=== PATIENT | female | born 1965 | race American Indian/Alaskan Native ===

== ENCOUNTER → 2018-08-03 11:57 | Outpatient (CLI) | payer OTHER, MEDICAID, SELFPAY ==
--- NOTE | 2018-08-03 | DI.RAD.S_ITS ---
PROCEDURE: XR FOOT LT MIN 3V INDICATIONS: left foot pain TECHNIQUE: 3 views of the foot were acquired. COMPARISON: [facility], , FOOT 3V LEFT, 07/25/2011, 12:10. FINDINGS: Bones: There is a fracture fragment medial to the talonavicular joint, new since the last exam. ? Pes planus. Bunion. There is moderate to severe first metatarsophalangeal joint degeneration, increased compared to last exam. No suspicious bony lesions. Soft tissues: No tibiotalar joint effusion. Achilles tendon appears normal. IMPRESSION: 1. A fracture fragment medial to the talonavicular joint, uncertain chronicity but new since the last exam. 2. Bunion and worsening of first metatarsophalangeal joint degeneration. 3. ? Pes planus. Dictated by: Treva Bacon M.D. on 08/03/2018 at 17:46 Approved by: Treva Bacon M.D. on 08/03/2018 at 17:51
--- NOTE | 2018-08-03 | DI.RAD.S_ITS ---
PROCEDURE: XR FOOT RT MIN 3V INDICATIONS: right foot pain TECHNIQUE: 3 views of the foot were acquired. COMPARISON: None. FINDINGS: Bones: No fractures or dislocations. Severe bunion and moderate first metatarsophalangeal joint degeneration. There is irregularity and lucency of the sesamoids and the first metatarsal head. No suspicious bony lesions. Soft tissues: No tibiotalar joint effusion. Achilles tendon appears normal. IMPRESSION: 1. Severe bunion and moderate first metatarsophalangeal joint degeneration. 2. Degenerative changes of the first metatarsal head and sesamoids, suggesting sesamoid dysfunction/degeneration. Dictated by: Treva Bacon M.D. on 08/03/2018 at 17:52 Approved by: Treva Bacon M.D. on 08/04/2018 at 9:59
== END ==
PROVIDERS: PCP Family Medicine; Visit Provider Family Medicine
DX: M79.672 Pain in left foot (principal); M79.671 Pain in right foot; M21.612 Bunion of left foot; M21.611 Bunion of right foot; M19.072 Primary osteoarthritis, left ankle and foot; M19.071 Primary osteoarthritis, right ankle and foot
CPT/HCPCS: 73630

== ENCOUNTER → 2018-10-25 14:33 | Outpatient (CLI) | payer OTHER, SELFPAY | PROVIDERS: PCP Family Medicine; Visit Provider Ophthalmology | DX: H16.9 Unspecified keratitis (principal) | CPT/HCPCS: 87070; 87077; 87186; 87205; 87252 ==

== ENCOUNTER → 2019-04-21 12:21 | Outpatient (CLI) | payer OTHER, SELFPAY ==
--- NOTE | 2019-04-21 | DI.RAD.S_ITS ---
PROCEDURE: XR KNEE LT 1TO2V INDICATIONS: Knee pain and swelling TECHNIQUE: 2 views of the knee were acquired. COMPARISON: [facility], , KNEE 3V LEFT, 07/25/2011, 12:09. FINDINGS: Bones: No fractures or dislocations. No suspicious bony lesions. Mild degenerative joint disease with periarticular osteophytes. Soft tissues: There is a moderate joint effusion. No suspicious soft tissue calcifications. IMPRESSION: 1. Mild degenerative joint disease. 2. Moderate knee joint effusion. Dictated by: Treva Bacon M.D. on 04/21/2019 at 15:09 Approved by: Treva Bacon M.D. on 04/21/2019 at 15:11
== END ==
PROVIDERS: PCP Family Medicine; Visit Provider Family Medicine
DX: M25.562 Pain in left knee (principal); M17.12 Unilateral primary osteoarthritis, left knee; M25.462 Effusion, left knee
CPT/HCPCS: 73560

== ENCOUNTER 2020-05-07 12:09 | Emergency (ER) | payer OTHER, SELFPAY ==
[2020-05-07] VITALS (14 sets, daily range): BP systolic 127–162; BP diastolic 69–86; PULSE 74–84; RESP 9–25; O2SAT 96–100; BMI 39.4
[2020-05-07 13:05] LABS: Add Manual Diff / Slide Review NO; Basophils Absolute Auto 0 /uL (0-100); Basophils Percent Auto 0.7 % (0-2); Eosinophils Absolute Auto 200 /uL (0-450); Eosinophils Percent Auto 3.4 % (2-4); Hematocrit 34.4 % (36-46); Lymphocytes Absolute Auto 1100 /uL (1100-4500); Lymphocytes Percent Auto 17.5 % (25-40); Mean Corpuscular HGB Conc 34.9 % (30-36); Mean Corpuscular Hemoglobin 29.6 PG (26-34); Mean Corpuscular Volume 84.9 fL (80-100); Monocytes Absolute Auto 600 /uL (0-900); Monocytes Percent Auto 8.9 % (3-14); Neutrophils Absolute Auto 4500 /uL (1500-7000); Neutrophils Percent Auto 69.5 % (50-75); Platelet Count 341 X10^3/uL (150-400); Red Blood Cell Count 4.05 X10^6/uL (4.0-5.2); Red Cell Distribution Width 14.3 % (11.6-14.8); White Blood Cell Count 6.5 X10^3/uL (4.5-11.0)
[2020-05-07 13:11] LABS: PTT Partial Thromboplastin Tim 31 SECONDS (26.4-36.2)
[2020-05-07 13:14] LABS: Alanine Aminotransferase 21 IU/L (<35); Albumin 4.1 g/dL (3.5-5.0); Albumin Globulin Ratio 1.1 (1.0-2.8); Alkaline Phosphatase 120 U/L (38-126); Aspartate Aminotransferase 27 IU/L (14-36); BUN Creatinine Ratio 20.5 (6-22); Bilirubin Total 0.4 mg/dL (0.2-1.3); Blood Urea Nitrogen 16 mg/dL (7-17); Calcium 9.7 mg/dL (8.4-10.2); Carbon Dioxide 30 mmol/L (22-32); Chloride 104 mmol/L (98-107); Estimated Glomerular Filt Rate > 60.0 mL/min (>60); Globulin 3.7 g/dL (1.7-4.1); Glucose 108 mg/dL (70-100); HEMOLYSIS < 15 (0-50); Lipase 67 U/L (23-300); Potassium 4.2 mmol/L (3.4-5.1); Sodium 139 mmol/L (137-145); Total Protein 7.8 g/dL (6.3-8.2)
--- NOTE | 2020-05-07 14:44 | ED_ITS ---
HPI - Abdominal Pain General Chief Complaint: Abdominal Pain Stated Complaint: Stomach Pain Time Seen by Provider: 05/07/20 14:44 Source: patient Mode of arrival: Wheelchair Limitations: no limitations History of Present Illness HPI narrative: Pleasant 54-year-old woman with a history of opioid use disorder currently on methadone and doing well presents with abdominal pain that woke her up this morning . She describes the pain as mostly in the right lower quadrant and constantly present. It is not radiating and not positional. She states her last bowel movement was yesterday. No fevers, vomiting, cough chest pain or dyspnea. She also notes pain in her left leg. Eight days ago she stumbled over a rock a nd fell on her left leg. She did not seek any care at that time she has noticed increasing swelling to the left calf the left knee has an abrasion that is healing nicely but a mild effusion is appreciated. She also has specific tenderness on the lateral malleolus and over the last 48 hours has noticed increased bruising over the lateral aspect of her foot. She has an old bruise healing over the left greater trochanter. Her primary complaint is increasing reflux and esophageal pain. She is noting that food seems to get stuck more easily. Her last primary care physician retired a number of years ago and she has not seen a new provider since. She continues to take omeprazole for reflux. Related Data Home Medications Medication Instructions Recorded Confirmed LISINOPRIL (Zestril / Prinivil) 40 mg PO DAILY #0 10/17/09 FERROUS GLUCONATE (#FERATE) 27 mg PO Q DAY #0 07/25/11 hydrochlorothiazide 25 mg PO QDAY #0 12/13/11 omeprazole 20 mg PO QDAY #0 12/13/11 BusPIRone Hydrochloride (BUSPAR 15 mg PO TID #0 05/14/13 DIVIDOSE~) hydroxyzine pamoate [Vistaril] 25 mg PO Q6HP #0 05/14/13 methocarbamol [Robaxin-750] 750 mg PO QID #1 05/14/13 tizanidine 4 mg PO Q8H #0 05/14/13 VITAMIN D (Vitamin D3) #0 04/11/17 bisacodyl [Fleet Laxative #0 04/11/17 (bisacodyl)] furosemide [Lasix] 20 #0 04/11/17 gabapentin [Neurontin] 300 TID #0 04/11/17 oxybutynin chloride [Ditropan XL] #0 04/11/17 potassium chloride [Klor-Con 8] 10 meq #0 04/11/17 sucralfate #0 04/11/17 methadone 140 mg #0 04/14/17 Previous Rx's Medication Instructions Recorded sulfamethoxazole-trimethoprim 1 tab PO BID #20 tab 04/11/17 clindamycin HCl 300 mg PO Q6H 7 Days #0 cap 04/15/17 Allergies Allergy/AdvReac Type Severity Reaction Status Date / Time From MOTRIN Allergy Unknown Uncoded 02/17/18 12:52 Review of Systems Review of Systems Narrative: Pertinent positive and negative findings as per HPI Remainder of review of systems is otherwise unremarkable for Constitutional: Fevers, chills, weakness ENT: No sore throat, neck pain, ear pain CV: Chest pain, palpitations, dyspnea on exertion Respiratory: Cough, wheeze, dyspnea : Dysuria, hematuria, flank pain MS: Muscle weakness, numbness, Neuro: Syncope, dizziness, tingling Patient History Medical History (Updated 05/07/20 @ 18:06 by Sonia Walsh MD) Acid reflux (Acute) Opioid use disorder (Acute) Social History Smoking Status: Current every day smoker Smoking Status: Current every day smoker alcohol intake frequency: 0-2 drinks per day Substance Use Type: marijuana Exam Narrative Exam Narrative: General: Healthy appearing, slightly slow and drifting to sleep (she states she just came from the methadone clinic). Able to speak in full sentences and cooperate with history taking. HEENT: Moist mucous membranes, normal sclera with reactive pupils, Neck: No JVD, supple Respiratory: Lungs are clear to auscultation, no wheezing no rales no rhonchi. Full and symmetrical air movement Cardiac: Regular rate and rhythm no murmurs no bruits Abdomen: Soft , mild tenderness in the right lower quadrant without rebound or guarding good bowel tones, no flank pain Skin: Warm and dry, no rashes Neurologic: Grossly neurologically intact with no obvious asymmetries or abnormalities Extremities: Healing hematoma over the left greater trochanter. He mild knee effusion with healing abrasion over the left knee with knee stability appreciated on exam however she is somewhat tender with lateral stress. Ankle is swollen with bruising over the lateral aspect of the foot and tenderness to the lateral malleolus on palpation. Psych: Cooperative, sleepy Initial Vital Signs Initial Vital Signs: Vital Signs Pulse Rate 83 05/07/20 12:38 Respiratory Rate 18 05/07/20 12:38 Blood Pressure 146/81 H 05/07/20 12:38 Pulse Oximetry 98 05/07/20 12:38 Course Orders Ordered: ED Orders 05/07/20 12:41 EKG-12 Lead Stat 05/07/20 12:55 Complete Blood Count AUTO DIFF Stat Comprehensive Metabolic Panel Stat Lipase Stat Partial Thromboplastin Time Stat Prothrombin Time INR Stat 05/07/20 15:15 Urine Microscopic Stat 05/07/20 15:56 US periph venous low extrem lt Stat XR abdomen 1V Stat XR ankle LT min 3V Stat Discontinued Medications Acetaminophen (Tylenol) 975 mg PO NOW ONE Stop: 05/07/20 16:54 Last Admin: 05/07/20 16:57 Dose: 975 mg Documented by: CINDY Vital Signs Vital signs: Vital Signs - 8 hr 05/07/20 12:38 05/07/20 14:52 05/07/20 15:00 Pulse Rate 83 79 79 Respiratory Rate 18 22 19 Blood Pressure 146/81 H 141/86 H 128/75 Pulse Oximetry 98 96 96 05/07/20 15:15 05/07/20 15:30 05/07/20 15:45 Pulse Rate 77 76 74 Respiratory Rate 15 13 11 L Blood Pressure 137/72 Pulse Oximetry 05/07/20 16:00 05/07/20 16:25 05/07/20 16:26 Pulse Rate 79 78 82 Respiratory Rate 20 9 L Blood Pressure 140/75 133/74 Pulse Oximetry 97 100 99 05/07/20 16:30 05/07/20 16:45 05/07/20 17:00 Pulse Rate 78 77 84 Respiratory Rate 12 19 25 H Blood Pressure 127/69 162/82 H Pulse Oximetry 98 97 96 05/07/20 17:15 05/07/20 17:30 Pulse Rate 76 76 Respiratory Rate 21 16 Blood Pressure 137/85 Pulse Oximetry 97 96 MDM - Abdominal Pain Medical Records Attestation: I reviewed the patient's medical records. Lab Data Attestation: I reviewed the patient's lab results. Result diagrams: 05/07/20 12:55 05/07/20 12:55 Labs: Lab Results 05/07/20 05/07/20 05/07/20 Range/Units 12:55 12:55 12:55 WBC 6.5 (4.5-11.0) X10^3/uL RBC 4.05 (4.0-5.2) X10^6/uL Hgb 12.0 (12.0-16.0) g/dL Hct 34.4 L (36-46) % MCV 84.9 (80-100) fL MCH 29.6 (26-34) PG MCHC 34.9 (30-36) % RDW 14.3 (11.6-14.8) % Plt Count 341 (150-400) X10^3/uL Neut % (Auto) 69.5 (50-75) % Lymph % (Auto) 17.5 L (25-40) % [place] % (Auto) 8.9 (3-14) % Eos % (Auto) 3.4 (2-4) % Baso % (Auto) 0.7 (0-2) % Neut # (Auto) 4500 (1081-3501) /uL Lymph # (Auto) 1100 (1001-9220) /uL [place] # (Auto) 600 (0-900) /uL Eos # (Auto) 200 (0-450) /uL Baso # (Auto) 0 (0-100) /uL PT 12.0 (10.1-12.7) SECONDS INR 1.0 (0.9-1.3) APTT 31 (26.4-36.2) SECONDS Sodium 139 (137-145) mmol/L Potassium 4.2 (3.4-5.1) mmol/L Chloride 104 (98-107) mmol/L Carbon Dioxide 30 (22-32) mmol/L BUN 16 (7-17) mg/dL Creatinine 0.78 (0.52-1.04) mg/dL Estimated GFR > 60.0 (>60) mL/min BUN/Creatinine Ratio 20.5 (6-22) Glucose 108 H (70-100) mg/dL Calcium 9.7 (8.4-10.2) mg/dL Total Bilirubin 0.4 (0.2-1.3) mg/dL AST 27 (14-36) IU/L ALT 21 (<35) IU/L Alkaline Phosphatase 120 (38-126) U/L Total Protein 7.8 (6.3-8.2) g/dL Albumin 4.1 (3.5-5.0) g/dL Globulin 3.7 (1.7-4.1) g/dL Albumin/Globulin Ratio 1.1 (1.0-2.8) Lipase 67 (23-300) U/L Urine RBC (0-5/HPF) Urine WBC (0-5/HPF) Ur Squamous Epith Cells (0-5/HPF) Urine Bacteria (None) Ur Culture Indicated? 05/07/20 Range/Units 15:15 WBC (4.5-11.0) X10^3/uL RBC (4.0-5.2) X10^6/uL Hgb (12.0-16.0) g/dL Hct (36-46) % MCV (80-100) fL MCH (26-34) PG MCHC (30-36) % RDW (11.6-14.8) % Plt Count (150-400) X10^3/uL Neut % (Auto) (50-75) % Lymph % (Auto) (25-40) % [place] % (Auto) (3-14) % Eos % (Auto) (2-4) % Baso % (Auto) (0-2) % Neut # (Auto) (1610-6916) /uL Lymph # (Auto) (6702-8348) /uL [place] # (Auto) (0-900) /uL Eos # (Auto) (0-450) /uL Baso # (Auto) (0-100) /uL PT (10.1-12.7) SECONDS INR (0.9-1.3) APTT (26.4-36.2) SECONDS Sodium (137-145) mmol/L Potassium (3.4-5.1) mmol/L Chloride (98-107) mmol/L Carbon Dioxide (22-32) mmol/L BUN (7-17) mg/dL Creatinine (0.52-1.04) mg/dL Estimated GFR (>60) mL/min BUN/Creatinine Ratio (6-22) Glucose (70-100) mg/dL Calcium (8.4-10.2) mg/dL Total Bilirubin (0.2-1.3) mg/dL AST (14-36) IU/L ALT (<35) IU/L Alkaline Phosphatase (38-126) U/L Total Protein (6.3-8.2) g/dL Albumin (3.5-5.0) g/dL Globulin (1.7-4.1) g/dL Albumin/Globulin Ratio (1.0-2.8) Lipase (23-300) U/L Urine RBC 1-5/hpf (0-5/HPF) Urine WBC 5-10/hpf H (0-5/HPF) Ur Squamous Epith Cells 5-10 /hpf H (0-5/HPF) Urine Bacteria None seen (None) Ur Culture Indicated? Cult not indicated Point of care testing: Point of Care Testing Test Results Negative Urine Dip Bedside Urine Glucose Negative Bedside Urine Bilirubin - Negative Bedside Urine Ketone - Negative Urine Specific [place] 1.015 Bedside Urine Occult Blood +++ Bedside Urine pH 6.5 Bedside Urine Protein +/- 15 Bedside Urine Urobilinogen - Negative Bedside Urine Nitrite - Negative Bedside Urine Leukocytes ++ 125 Esterase Imaging Data Abdominal x-ray: Radiologist's Impression: IMPRESSION: No evidence of a bowel obstruction. The amount of stool within the colon is within normal limits. Dictated by: Sidney Nunn M.D. on 05/07/2020 at 15:41 Ankle x-ray: Radiologist's Impression: IMPRESSION: Unusual appearance of the talus on the lateral view in may be related to patient positioning. The possibility of a subtle fracture cannot be excluded. CT would be helpful for better evaluation. Dictated by: Sidney Nunn M.D. on 05/07/2020 at 15:42 MDM Narrative Medical decision making narrative: Patient comes in with abdominal pain. Labs are unremarkable without evidence of white count. She has no dramatic tenderness certainly no rebound guarding or concern for a surgical abdomen. No evidence for traumatic stool loading on x-ray and no free air. Reviewed signs and symptoms of developing appendicitis with patient at this point I do not think that is the diagnosis. No evidence of ankle fracture or DVT in the left lower extremity. Suspect the swelling is from the fall with the moderate knee injury a week ago. As she is significantly sedated within a couple of hours of taking her daily methadone dose I am not convinced that she needs any additional pain medication be on Tylenol. She is safe for home discharge Discharge Plan Departure Patient Disposition: Home Clinical Impression: Abdominal pain Qualifiers: Abdominal location: right lower quadrant Qualified Code(s): R10.31 - Right lower quadrant pain Ankle pain, left Qualifiers: Chronicity: acute Qualified Code(s): M25.572 - Pain in left ankle and joints of left foot Knee pain, left Qualifiers: Chronicity: acute Qualified Code(s): M25.562 - Pain in left knee Instructions: DI for Abdominal Pain-Adult Activity Restrictions/Additional Instructions: Thank you for coming in today I am not finding any acute issues to explain your abdominal pain. I do not think that you have appendicitis however that something that always needs to be discussed. If you feel that you are getting worse you do need to be re- evaluated. Your x-ray today and her blood work were very reassuring. Regarding your left leg. You definitely injured yourself with your fall a week ago, however the knee and the ankle are both going to heal. The swelling in your calf is from the swelling from the knee and the ankle. There is no evidence of any blood clot. Regarding the increased symptoms with heartburn and feeling that food is getting stuck, you do need to follow-up with the primary care physician and likely will benefit from a consultation with a stacking machine operator at some point in the near future. I wish you the best Prescriptions: No Action LISINOPRIL (Zestril / Prinivil) 40 mg PO DAILY Qty: 0 RF: 0 FERROUS GLUCONATE (#FERATE) 27 mg PO Q DAY Qty: 0 RF: 0 omeprazole 20 MG capsule,delayed release(DR/EC) 20 mg PO QDAY Qty: 0 RF: 0 hydrochlorothiazide 25 MG tablet 25 mg PO QDAY Qty: 0 RF: 0 hydroxyzine pamoate [Vistaril] 25 MG capsule 25 mg PO Q6HP Qty: 0 RF: 0 tizanidine 4 MG tablet 4 mg PO Q8H Qty: 0 RF: 0 BusPIRone Hydrochloride (BUSPAR DIVIDOSE~) 15 mg PO TID Qty: 0 RF: 0 methocarbamol [Robaxin-750] 750 MG tablet 750 mg PO QID Qty: 1 RF: 0 sucralfate 1 GM tablet Qty: 0 RF: 0 potassium chloride [Klor-Con 8] 8 MEQ tablet extended release 10 meq Qty: 0 RF: 0 furosemide [Lasix] 20 MG tablet 20 Qty: 0 RF: 0 bisacodyl [Fleet Laxative (bisacodyl)] 5 MG tablet,delayed release (DR/EC) Qty: 0 RF: 0 oxybutynin chloride [Ditropan XL] 5 MG tablet extended release 24hr Qty: 0 RF: 0 gabapentin [Neurontin] 300 MG capsule 300 TID Qty: 0 RF: 0 VITAMIN D (Vitamin D3) Qty: 0 RF: 0 sulfamethoxazole-trimethoprim 800 MG/160 MG tablet 1 tab PO BID Qty: 20 RF: 0 methadone 5 MG tablet 140 mg Qty: 0 RF: 0 clindamycin HCl 300 MG capsule 300 mg PO Q6H 7 Days Qty: 0 RF: 0 Referrals: Marilynn Cheng MD [Primary Care Provider] -
--- NOTE | 2020-05-07 14:47 | PC.NURSE ---
patient states that this am she became nauseated and felt like she was going to vomit but that since has resolved. Now she is complaining that her RLQ is painful to touch and also her middle abdomen. She also states that she fell one week ago Thursday. It was a mechanical fall where she hit her left knee and ankle. Her ankle is purple along the lateral edge and tender to the touch. She states that she is only able to bear partial weight.
[2020-05-07 15:34] LABS: Bacteria Urine None Seen
[2020-05-07 15:41] LABS: Culture Indicated Urine Cult Not Indicated; RBC Urine 1-5/HPF (0-5/HPF); Squamous Epithelial Cell Urine 5-10 /HPF (0-5/HPF); WBC Urine 5-10/HPF (0-5/HPF)
--- NOTE | 2020-05-07 15:56 | DI.US.S_ITS ---
PROCEDURE: US PERIPH VENOUS LOW EXTREM LT INDICATIONS: UNILATERAL EDEMA TECHNIQUE: Real-time imaging, as well as color and pulse Doppler interrogation, were performed of the lower extremity deep veins from the inguinal ligament to the popliteal fossa. COMPARISON: None. FINDINGS: The common femoral, femoral and popliteal veins are normally compressible, and free of intraluminal thrombus. Color and pulse Doppler demonstrate normal phasic intraluminal flow. There is normal augmentation response to distal compression maneuver. IMPRESSION: No definitive DVT in the left lower extremity. Difficulty compressing the distal left femoral secondary to body habitus. Dictated by: Treva Bacon M.D. on 05/07/2020 at 18:10 Approved by: Treva Bacon M.D. on 05/07/2020 at 18:12
--- NOTE | 2020-05-07 15:56 | DI.RAD.S_ITS ---
PROCEDURE: XR ABDOMEN 1V INDICATIONS: abdominal pain, ? consitpation TECHNIQUE: One view of the abdomen acquired. COMPARISON: None. FINDINGS: Surgical changes and devices: None. Bowel: No air-filled distended small bowel loops are identified demonstrating air-fluid levels. A small to moderate amount of residual stool is identified within the colon. Soft tissues: No suspicious abdominal calcifications. Visualized solid organ contours appear normal in size. Bones: No suspicious bony lesions. Mild to moderate degenerative changes of the mid spine and pelvic joints are present. IMPRESSION: No evidence of a bowel obstruction. The amount of stool within the colon is within normal limits. Dictated by: Sidney Nunn M.D. on 05/07/2020 at 15:41 Approved by: Sidney Nunn M.D. on 05/07/2020 at 15:42
--- NOTE | 2020-05-07 15:56 | DI.RAD.S_ITS ---
PROCEDURE: XR ANKLE LT MIN 3V INDICATIONS: trauma TECHNIQUE: 3 views of the ankle were acquired. COMPARISON: [facility], , ANKLE 3 VIEWS LEFT, 12/15/2017, 0:25. FINDINGS: Bones: No definitive fractures or dislocations. Ankle mortise is normally aligned. No suspicious bony lesions. Slight irregularity of the tip of the medial malleolus probably is related to previous injury. A large os trigonum is incidentally noted. There are mild to moderate degenerative changes involving the mid foot and hindfoot joints that are most pronounced involving the tibiotalar joint. Also appear to be degenerative changes of the subtalar joints. There is somewhat flattened appearance of the body of the talus on the lateral view, which may be positional. Soft tissues: No tibiotalar joint effusion. Achilles tendon appears normal. IMPRESSION: Unusual appearance of the talus on the lateral view in may be related to patient positioning. The possibility of a subtle fracture cannot be excluded. CT would be helpful for better evaluation. Dictated by: Sidney Nunn M.D. on 05/07/2020 at 15:42 Approved by: Sidney Nunn M.D. on 05/07/2020 at 15:44
[2020-05-07] MEDS: ACETAMINOPHEN 325 MG TABLET 975 MG PO (16:57)
--- NOTE | 2020-05-07 17:00 | PC.NURSE ---
patient complains of pain in left leg during ultrasound. Provider notified. Patient was treated with methadone prior to coming to the ED today. Patient given 975 mg of tylenol.
== END 2020-05-07 18:29 | disposition home or self-care (01) ==
PROVIDERS: Emergency Provider Emergency Medicine; PCP Family Medicine
DX: R10.31 Right lower quadrant pain (principal); M25.572 Pain in left ankle and joints of left foot; M25.562 Pain in left knee
CPT/HCPCS: 36415; 73610; 74018; 80053; 81003; 81015; 81025; 83690; 85025; 85610; 85730; 93005; 93971; 99284

== ENCOUNTER 2020-05-09 16:25 | Emergency (ER) | payer OTHER, SELFPAY ==
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
[2020-05-09 16:36] VITALS: BP 143/68; PULSE 99; RESP 20; TEMP 37.1; O2SAT 98
[2020-05-09 17:58] VITALS: BP 144/83; PULSE 97; O2SAT 97
== END 2020-05-09 17:59 | disposition home or self-care (01) ==
PROVIDERS: Emergency Provider Emergency Medicine; PCP Family Medicine
DX: S16.1XXA Strain of muscle, fascia and tendon at neck level, initial encounter (principal); M25.512 Pain in left shoulder; R07.89 Other chest pain; V89.2XXA Person injured in unspecified motor-vehicle accident, traffic, initial encounter
CPT/HCPCS: 70450; 71046; 72125; 99283; 99284

== ENCOUNTER 2020-09-03 18:02 | Emergency (ER) | payer OTHER, SELFPAY ==
[2020-09-03 18:40] VITALS: BP 141/81; PULSE 86; RESP 16; O2SAT 98; BMI 40.6
[2020-09-03 19:27] VITALS: PULSE 85; O2SAT 100
[2020-09-03 19:30] VITALS: BP 131/81; PULSE 83; O2SAT 99
[2020-09-03 20:00] VITALS: BP 122/71; PULSE 84; O2SAT 96
--- NOTE | 2020-09-03 20:12 | ED.LOWEXIN ---
HPI - Extremity Injury (Lower) General Chief Complaint: Extremity Injury, Lower Stated Complaint: LEFT LEG SWELLING PAINFUL Time Seen by Provider: 09/03/20 19:39 Source: patient Mode of arrival: Wheelchair Limitations: no limitations History of Present Illness HPI Narrative: The patient has experienced swelling to her left leg periodically over the last year. She has had increased pain and swelling over the last week, the swelling has persisted. She complains primarily of pain in the left calf in the left popliteal fossa she has no associated chest pain or dyspnea. The leg is erythematous, she denies fever chills. She has had no trauma to the left leg. She was seen in clinic, there was concern about DVT. She has no prior history of DVT. She is on medications for chronic pain treatment. Related Data Home Medications Medication Instructions Recorded Confirmed LISINOPRIL (Zestril / Prinivil) 40 mg PO DAILY #0 10/17/09 FERROUS GLUCONATE (#FERATE) 27 mg PO Q DAY #0 07/25/11 hydrochlorothiazide 25 mg PO QDAY #0 12/13/11 omeprazole 20 mg PO QDAY #0 12/13/11 BusPIRone Hydrochloride (BUSPAR 15 mg PO TID #0 05/14/13 DIVIDOSE~) hydroxyzine pamoate [Vistaril] 25 mg PO Q6HP #0 05/14/13 methocarbamol [Robaxin-750] 750 mg PO QID #1 05/14/13 tizanidine 4 mg PO Q8H #0 05/14/13 VITAMIN D (Vitamin D3) #0 04/11/17 bisacodyl [Fleet Laxative #0 04/11/17 (bisacodyl)] furosemide [Lasix] 20 #0 04/11/17 gabapentin [Neurontin] 300 TID #0 04/11/17 oxybutynin chloride [Ditropan XL] #0 04/11/17 potassium chloride [Klor-Con 8] 10 meq #0 04/11/17 sucralfate #0 04/11/17 methadone 140 mg #0 04/14/17 Previous Rx's Medication Instructions Recorded sulfamethoxazole-trimethoprim 1 tab PO BID #20 tab 04/11/17 clindamycin HCl 300 mg PO Q6H 7 Days #0 cap 04/15/17 sulfamethoxazole-trimethoprim 1 tab PO BID 10 Days #20 tab 09/03/20 Allergies Allergy/AdvReac Type Severity Reaction Status Date / Time From MOTRIN AdvReac Unknown Heartburn Uncoded 05/09/20 16:42 Review of Systems Constitutional Constitutional: Denies chills, Denies fever(s), Denies headache(s), Denies lethargy and Denies weakness Eyes Comments: No complaints ENT Ears, Nose, Mouth, and Throat: Denies headache(s) and Denies sore throat Cardiovascular Cardiovascular: Denies chest pain and Denies dyspnea Respiratory Respiratory: Denies cough and Denies dyspnea Gastrointestinal Gastrointestinal: Denies abdominal pain Musculoskeletal Comments: Chronic back pain Integumentary/Breasts Comments: Redness and swelling to left leg. Neurologic Neurologic: Denies confusion, Denies headache(s) and Denies weakness Comments: No numbness to the lower extremities. Psychiatric Psychiatric: Denies confusion and Denies depression Patient History Medical History Acid reflux (Acute) Opioid use disorder (Acute) Social History Smoking Status: Current every day smoker Smoking Status: Current every day smoker tobacco type: cigarettes alcohol intake frequency: 0-2 drinks per day Substance Use Type: marijuana Exam Initial Vital Signs Initial Vital Signs: Vital Signs Pulse Rate 86 09/03/20 18:40 Respiratory Rate 16 09/03/20 18:40 Blood Pressure 141/81 H 09/03/20 18:40 Pulse Oximetry 98 09/03/20 18:40 Const General: cooperative and well developed Nutritional Appearance: well nourished Other: The patient is on narcotics for chronic pain. She is somnolent for the majority of the evaluation. [facility] Head: normocephalic and atraumatic Resp Effort & Inspection: normal respiratory effort and able to speak in complete sentences Auscultation: clear to auscultation bilaterally, no rales, no rhonchi and no wheezes Cardio Rate: regular rate Rhythm: regular rhythm Heart Sounds: S1 normal, S2 normal, no click, no gallops, no murmurs and no rubs Pulses: normal peripheral pulses GI Palpation: soft Percussion: abnormal to percussion Auscultation: normal bowel sounds Skin Other: Erythema to the left lower calf, extending to the mid calf. Neuro General: patient alert, patient oriented x3, gait normal and no focal motor deficits Speech: speech normal Extrem General: full ROM, no clubbing, cyanosis or edema, no pedal edema and no calf tenderness Other: Tenderness in the left popliteal fossa, decreased motion. Mild edema to left lower extremity. Negative Homans sign. Erythema to the left calf with warmth, suggesting cellulitis. Dorsalis pedis pulses normal bilaterally. Psych Speech and Movement: speech and movement normal, slowed movement and other (Somnolent) Course Course Course Narrative: The patient has cellulitis to left lower extremity. Labs are reassuring. She was given Rocephin IV, and started on Septra DS. She is advised to recheck with her doctor later this week. Orders Ordered: ED Orders 09/03/20 19:36 Complete Blood Count AUTO DIFF Stat Comprehensive Metabolic Panel Stat D Dimer Stat Lactate (Lactic Acid) Stat Partial Thromboplastin Time Stat Prothrombin Time INR Stat Discontinued Medications Ceftriaxone Sodium/Dextrose (Rocephin) 1 gm in 50 mls @ 100 mls/hr IV NOW ONE Stop: 09/03/20 21:20 Last Admin: 09/03/20 21:04 Dose: 100 mls/hr Documented by: CINDY Trimethoprim/Sulfamethoxazole (Bactrim Ds) 1 tab PO NOW ONE Stop: 09/03/20 20:51 Last Admin: 09/03/20 21:04 Dose: 1 tab Documented by: CINDY Vital Signs Vital signs: Vital Signs - 8 hr 09/03/20 18:40 09/03/20 19:27 09/03/20 19:30 Pulse Rate 86 85 83 Respiratory Rate 16 Blood Pressure 141/81 H 131/81 Pulse Oximetry 98 100 99 09/03/20 20:00 Pulse Rate 84 Respiratory Rate Blood Pressure 122/71 Pulse Oximetry 96 MDM - Extremity Injury (Lower) Lab Data Result diagrams: 09/03/20 19:36 09/03/20 19:36 Labs: Lab Results 09/03/20 09/03/20 09/03/20 Range/Units 19:36 19:36 19:36 WBC 5.4 (4.5-11.0) X10^3/uL RBC 4.08 (4.0-5.2) X10^6/uL Hgb 11.8 L (12.0-16.0) g/dL Hct 35.3 L (36-46) % MCV 86.6 (80-100) fL MCH 28.8 (26-34) PG MCHC 33.3 (30-36) % RDW 13.9 (11.6-14.8) % Plt Count 296 (150-400) X10^3/uL Neut % (Auto) 56.4 (50-75) % Lymph % (Auto) 29.5 (25-40) % [place] % (Auto) 6.9 (3-14) % Eos % (Auto) 6.4 H (2-4) % Baso % (Auto) 0.8 (0-2) % Neut # (Auto) 3100 (4891-9710) /uL Lymph # (Auto) 1600 (3399-6813) /uL [place] # (Auto) 400 (0-900) /uL Eos # (Auto) 300 (0-450) /uL Baso # (Auto) 0 (0-100) /uL PT 11.3 (10.1-12.7) SECONDS INR 1.0 (0.9-1.3) APTT 27 D (26.4-36.2) SECONDS D-Dimer 283 H (<230) ng/mL Sodium 140 (137-145) mmol/L Potassium 3.8 (3.4-5.1) mmol/L Chloride 106 (98-107) mmol/L Carbon Dioxide 31 (22-32) mmol/L BUN 21 H (7-17) mg/dL Creatinine 0.84 (0.52-1.04) mg/dL Estimated GFR > 60.0 (>60) mL/min BUN/Creatinine Ratio 25.0 H (6-22) Glucose 86 (70-100) mg/dL Lactate (0.7-2.1) mmol/L Calcium 9.1 (8.4-10.2) mg/dL Total Bilirubin 0.3 (0.2-1.3) mg/dL AST 27 (14-36) IU/L ALT 22 (<35) IU/L Alkaline Phosphatase 96 (38-126) U/L Total Protein 7.6 (6.3-8.2) g/dL Albumin 3.9 (3.5-5.0) g/dL Globulin 3.7 (1.7-4.1) g/dL Albumin/Globulin Ratio 1.1 (1.0-2.8) 09/03/20 Range/Units 19:36 WBC (4.5-11.0) X10^3/uL RBC (4.0-5.2) X10^6/uL Hgb (12.0-16.0) g/dL Hct (36-46) % MCV (80-100) fL MCH (26-34) PG MCHC (30-36) % RDW (11.6-14.8) % Plt Count (150-400) X10^3/uL Neut % (Auto) (50-75) % Lymph % (Auto) (25-40) % [place] % (Auto) (3-14) % Eos % (Auto) (2-4) % Baso % (Auto) (0-2) % Neut # (Auto) (8052-0678) /uL Lymph # (Auto) (3764-9655) /uL [place] # (Auto) (0-900) /uL Eos # (Auto) (0-450) /uL Baso # (Auto) (0-100) /uL PT (10.1-12.7) SECONDS INR (0.9-1.3) APTT (26.4-36.2) SECONDS D-Dimer (<230) ng/mL Sodium (137-145) mmol/L Potassium (3.4-5.1) mmol/L Chloride (98-107) mmol/L Carbon Dioxide (22-32) mmol/L BUN (7-17) mg/dL Creatinine (0.52-1.04) mg/dL Estimated GFR (>60) mL/min BUN/Creatinine Ratio (6-22) Glucose (70-100) mg/dL Lactate 1.8 (0.7-2.1) mmol/L Calcium (8.4-10.2) mg/dL Total Bilirubin (0.2-1.3) mg/dL AST (14-36) IU/L ALT (<35) IU/L Alkaline Phosphatase (38-126) U/L Total Protein (6.3-8.2) g/dL Albumin (3.5-5.0) g/dL Globulin (1.7-4.1) g/dL Albumin/Globulin Ratio (1.0-2.8) Discharge Plan Departure Patient Disposition: Home Clinical Impression: Left leg cellulitis Instructions: DI for Cellulitis -- Adult Prescriptions: New sulfamethoxazole-trimethoprim 800-160 mg tablet 1 tab PO BID 10 Days Qty: 20 RF: 0 No Action LISINOPRIL (Zestril / Prinivil) 40 mg PO DAILY Qty: 0 RF: 0 FERROUS GLUCONATE (#FERATE) 27 mg PO Q DAY Qty: 0 RF: 0 omeprazole 20 MG capsule,delayed release(DR/EC) 20 mg PO QDAY Qty: 0 RF: 0 hydrochlorothiazide 25 MG tablet 25 mg PO QDAY Qty: 0 RF: 0 hydroxyzine pamoate [Vistaril] 25 MG capsule 25 mg PO Q6HP Qty: 0 RF: 0 tizanidine 4 MG tablet 4 mg PO Q8H Qty: 0 RF: 0 BusPIRone Hydrochloride (BUSPAR DIVIDOSE~) 15 mg PO TID Qty: 0 RF: 0 methocarbamol [Robaxin-750] 750 MG tablet 750 mg PO QID Qty: 1 RF: 0 sucralfate 1 GM tablet Qty: 0 RF: 0 potassium chloride [Klor-Con 8] 8 MEQ tablet extended release 10 meq Qty: 0 RF: 0 furosemide [Lasix] 20 MG tablet 20 Qty: 0 RF: 0 bisacodyl [Fleet Laxative (bisacodyl)] 5 MG tablet,delayed release (DR/EC) Qty: 0 RF: 0 oxybutynin chloride [Ditropan XL] 5 MG tablet extended release 24hr Qty: 0 RF: 0 gabapentin [Neurontin] 300 MG capsule 300 TID Qty: 0 RF: 0 VITAMIN D (Vitamin D3) Qty: 0 RF: 0 sulfamethoxazole-trimethoprim 800 MG/160 MG tablet 1 tab PO BID Qty: 20 RF: 0 methadone 5 MG tablet 140 mg Qty: 0 RF: 0 clindamycin HCl 300 MG capsule 300 mg PO Q6H 7 Days Qty: 0 RF: 0 Referrals: Marilynn Cheng MD [Primary Care Provider] -
[2020-09-03 20:31] LABS: Add Manual Diff / Slide Review NO; Basophils Absolute Auto 0 /uL (0-100); Basophils Percent Auto 0.8 % (0-2); Eosinophils Absolute Auto 300 /uL (0-450); Eosinophils Percent Auto 6.4 % (2-4); Hematocrit 35.3 % (36-46); Hemoglobin 11.8 g/dL (12.0-16.0); Lymphocytes Absolute Auto 1600 /uL (1100-4500); Lymphocytes Percent Auto 29.5 % (25-40); Mean Corpuscular HGB Conc 33.3 % (30-36); Mean Corpuscular Hemoglobin 28.8 PG (26-34); Mean Corpuscular Volume 86.6 fL (80-100); Monocytes Absolute Auto 400 /uL (0-900); Monocytes Percent Auto 6.9 % (3-14); Neutrophils Absolute Auto 3100 /uL (1500-7000); Neutrophils Percent Auto 56.4 % (50-75); Platelet Count 296 X10^3/uL (150-400); Red Blood Cell Count 4.08 X10^6/uL (4.0-5.2); Red Cell Distribution Width 13.9 % (11.6-14.8); White Blood Cell Count 5.4 X10^3/uL (4.5-11.0)
[2020-09-03 20:33] LABS: Prothrombin Time 11.3 SECONDS (10.1-12.7)
[2020-09-03 20:34] LABS: Alanine Aminotransferase 22 IU/L (<35); Albumin 3.9 g/dL (3.5-5.0); Albumin Globulin Ratio 1.1 (1.0-2.8); Alkaline Phosphatase 96 U/L (38-126); Aspartate Aminotransferase 27 IU/L (14-36); Bilirubin Total 0.3 mg/dL (0.2-1.3); Blood Urea Nitrogen 21 mg/dL (7-17); Calcium 9.1 mg/dL (8.4-10.2); Carbon Dioxide 31 mmol/L (22-32); Chloride 106 mmol/L (98-107); Estimated Glomerular Filt Rate > 60.0 mL/min (>60); Globulin 3.7 g/dL (1.7-4.1); Glucose 86 mg/dL (70-100); HEMOLYSIS 19 (0-50); Potassium 3.8 mmol/L (3.4-5.1); Sodium 140 mmol/L (137-145); Total Protein 7.6 g/dL (6.3-8.2)
[2020-09-03 20:36] LABS: D Dimer 283 ng/mL (<230); PTT Partial Thromboplastin Tim 27 SECONDS (26.4-36.2)
[2020-09-03 20:41] LABS: Lactate (Lactic Acid) 1.8 mmol/L (0.7-2.1)
[2020-09-03] MEDS: TRIMETH/SULFA 160/800 (DS) TABLET 1 TAB PO (21:04)
[2020-09-03] MEDS: CEFTRIAXONE 1 GM/50 ML FROZ.PIGGY IV (21:04)
[2020-09-03 21:41] VITALS: BP 126/74; PULSE 80; RESP 16; O2SAT 99
== END 2020-09-03 21:41 | disposition home or self-care (01) ==
PROVIDERS: Emergency Provider Emergency Medicine; PCP Family Medicine
DX: L03.116 Cellulitis of left lower limb (principal)
CPT/HCPCS: 80053; 83605; 85025; 85379; 85610; 85730; 96365; 99284

== ENCOUNTER → 2021-04-01 14:23 | Outpatient (ROUT) | payer OTHER, SELFPAY ==
[2021-04-01 14:31] LABS: Add Manual Diff / Slide Review NO; Basophils Absolute Auto 100 /uL (0-100); Basophils Percent Auto 0.9 % (0-2); Eosinophils Absolute Auto 400 /uL (0-450); Eosinophils Percent Auto 7.8 % (2-4); Hematocrit 34.7 % (36-46); Hemoglobin 11.5 g/dL (12.0-16.0); Lymphocytes Absolute Auto 1600 /uL (1100-4500); Lymphocytes Percent Auto 30.2 % (25-40); Mean Corpuscular HGB Conc 33.2 % (30-36); Mean Corpuscular Hemoglobin 27.7 PG (26-34); Mean Corpuscular Volume 83.5 fL (80-100); Monocytes Absolute Auto 400 /uL (0-900); Monocytes Percent Auto 7.2 % (3-14); Neutrophils Absolute Auto 2900 /uL (1500-7000); Neutrophils Percent Auto 53.9 % (50-75); Platelet Count 340 X10^3/uL (150-400); Red Blood Cell Count 4.16 X10^6/uL (4.0-5.2); Red Cell Distribution Width 14.7 % (11.6-14.8); White Blood Cell Count 5.4 X10^3/uL (4.5-11.0)
[2021-04-01 14:38] LABS: Prothrombin Time 12.8 SECONDS (10.1-12.7)
[2021-04-01 14:39] LABS: INR 1.1 (0.9-1.3)
[2021-04-01 14:45] LABS: PTT Partial Thromboplastin Tim 36 SECONDS (26.4-36.2)
[2021-04-01 15:00] LABS: Alanine Aminotransferase 24 IU/L (<35); Albumin 3.9 g/dL (3.5-5.0); Albumin Globulin Ratio 1.1 (1.0-2.8); Alkaline Phosphatase 128 U/L (38-126); Aspartate Aminotransferase 35 IU/L (14-36); BUN Creatinine Ratio 25.3 (6-22); Bilirubin Total 0.1 mg/dL (0.2-1.3); Blood Urea Nitrogen 21 mg/dL (7-17); Calcium 9.5 mg/dL (8.4-10.2); Carbon Dioxide 28 mmol/L (22-32); Chloride 104 mmol/L (98-107); Estimated Glomerular Filt Rate > 60.0 mL/min (>60); Globulin 3.6 g/dL (1.7-4.1); Glucose 92 mg/dL (70-100); HEMOLYSIS < 15 (0-50); Potassium 4.1 mmol/L (3.4-5.1); Sodium 139 mmol/L (137-145); Total Protein 7.5 g/dL (6.3-8.2)
[2021-04-12 13:48] LABS: 1,25-Dihydroxy, Vitamin D-2 <10 pg/mL (.)
== END ==
PROVIDERS: PCP Family Medicine; Visit Provider Physician Assistant
DX: Z79.01 Long term (current) use of anticoagulants (principal); Z51.81 Encounter for therapeutic drug level monitoring
CPT/HCPCS: 80053; 82652; 85025; 85610; 85730

== ENCOUNTER 2021-07-27 02:10 | Observation (INO) | payer OTHER, SELFPAY ==
[2021-07-27 02:21] VITALS: BP 154/72; PULSE 92; RESP 16; TEMP 36.6; O2SAT 96; BMI 36.0
--- NOTE | 2021-07-27 02:26 | DI.RAD.S_ITS ---
PROCEDURE: XR CHEST 1V INDICATIONS: SOB, chest burning TECHNIQUE: One view of the chest was acquired. COMPARISON: [facility], CR, XR CHEST 2V, 05/09/2020, 16:28. FINDINGS: Surgical changes and devices: None. Lungs and pleura: Lungs are clear. No pleural effusions or pneumothorax. Prominence of the central vasculature is likely due to overlying soft tissues Mediastinum: Mediastinal contours appear normal. Heart size is normal. Bones and chest wall: No suspicious bony lesions. Overlying soft tissues appear unremarkable. IMPRESSION: No acute cardiopulmonary abnormality Comment: Final report is concordant with preliminary interpretation by [facility] Dictated by: Roman Pedro M.D. on 07/27/2021 at 6:39 Approved by: Roman Pedro M.D. on 07/27/2021 at 6:40
--- NOTE | 2021-07-27 02:27 | ED.SOB ---
HPI - SOB/Dyspnea General Chief Complaint: Shortness of Breath/Dyspnea Stated Complaint: difficulty breathing Time Seen by Provider: 07/27/21 02:15 Source: patient and family Mode of arrival: Ambulatory Limitations: no limitations History of Present Illness HPI Narrative: 56F smoker with history of substance abuse (opioid), chronic lower extremity cellulitis and edema presents with her with the chief complaint of shortness of breath pain and burning lungs. She had been in her normal state of health when she started cleaning the bathroom this evening just before coming in with her . She had combined Lysol toilet bowl laboratory equipment cleaner (hydrochloric acid) and Chlorox bleach and started becoming symptomatic soon thereafter. She states that she was in the bathroom for approximately 10-15 minutes when her got home from work and found her struggling. She presented soon thereafter with the above-stated complaints. She feels dizzy, weak and fatigued. She has nausea but denies any vomiting. She does not use home oxygen but states she is supposed to. She has not been vaccinated against COVID Related Data Home Medications Medication Instructions Recorded Confirmed LISINOPRIL (Zestril / Prinivil) 40 mg PO DAILY #0 10/17/09 07/27/21 FERROUS GLUCONATE (#FERATE) 27 mg PO Q DAY #0 07/25/11 07/27/21 hydrochlorothiazide 25 mg tablet 25 mg PO QDAY #0 12/13/11 omeprazole 20 mg capsule,delayed 20 mg PO QDAY #0 12/13/11 07/27/21 release BusPIRone Hydrochloride (BUSPAR 15 mg PO TID #0 05/14/13 07/27/21 DIVIDOSE~) hydroxyzine pamoate 25 mg capsule 25 mg PO Q6HP #0 05/14/13 07/27/21 (Vistaril) VITAMIN D (Vitamin D3) 250 mg PO DAILY #0 04/11/17 07/27/21 furosemide 20 mg tablet (Lasix) 20 #0 04/11/17 gabapentin 300 mg capsule 300 mg PO TID #0 04/11/17 07/27/21 (Neurontin) potassium chloride 8 mEq 10 meq PO DAILY #0 04/11/17 07/27/21 tablet,extended release (Klor-Con) methadone 5 mg tablet 140 mg PO DAILY #0 04/14/17 07/27/21 Allergies Allergy/AdvReac Type Severity Reaction Status Date / Time amitriptyline AdvReac Verified 07/27/21 02:21 From MOTRIN AdvReac Unknown Heartburn Uncoded 05/09/20 16:42 Review of Systems Review of Systems Narrative: GENERAL: See HPI HEENT: Denies sinus pain, ear pain, sore throat, difficulty swallowing, dizziness. RESPIRATORY: See HPI. CARDIOVASCULAR: See HPI GASTROINTESTINAL: Denies nausea, vomiting, abdominal pain, diarrhea, constipation, melena. : Denies dysuria, frequency, incontinence, hematuria, urinary retention. MUSCULOSKELETAL: denies weakness, joint pain, or bony pain SKIN: Denies rash, skin lesions, or other NEUROLOGIC: Denies weakness, headache, numbness, change in speech, confusion, seizures, incoordination. PSYCHIATRIC: No concerning psychosocial issues. 12 point review of systems is negative except for those stated above Patient History Medical History Acid reflux Opioid use disorder Social History household members: spouse Smoking Status: Current every day smoker Smoking Status: Current every day smoker tobacco type: cigarettes alcohol intake frequency: 0-2 drinks per day Substance Use Type: marijuana Exam Narrative Exam Narrative: GENERAL: [56 year old patient appears stated age. Ill-appearing and in obvious distress, requires assistance getting from wheelchair, complains of burning with breathing but no significant obvious respiratory distress HEAD: Atraumatic. Normocephalic. EYES: Pupils equal round and reactive. Extraocular motions intact. No scleral icterus. No injection or drainage. ENT: Nose without bleeding, purulent drainage. Throat without erythema, tonsillar hypertrophy or exudate. Airway patent. NECK: Trachea midline. Non tender CARDIOVASCULAR: Regular rate and rhythm without murmurs, gallops, or rubs. RESPIRATORY: Decreased breath sounds bilaterally coarse inspiratory and expiratory wheeze throughout GASTROINTESTINAL: Abdomen soft, non-tender, nondistended. EXTREMITIES: No edema or joint tenderness. BACK: Nontender without deformity or crepitance. No flank tenderness. NEURO: AOx3. SKIN: No rash or erythema of visible areas Initial Vital Signs Initial Vital Signs: Vital Signs Temperature 97.8 F 07/27/21 02:21 Pulse Rate 92 H 07/27/21 02:21 Respiratory Rate 16 07/27/21 02:21 Blood Pressure 154/72 H 07/27/21 02:21 Pulse Oximetry 96 07/27/21 02:21 Course Course Course Narrative: was able to contact family at home who took pictures of the clearning products which confirm the combination of hydrochloric acid and bleach which leads me to suspect exposure to Chlorine gas Upon receipt of these photos I called Poison Control and they agree with supportive care and strongly encourage admission Orders Ordered: ED Orders 07/27/21 02:26 Consult to Respiratory Therapy Evaluate & Treat XR chest 1V Stat EKG-12 Lead Stat 07/27/21 02:34 Complete Blood Count AUTO DIFF Stat Comprehensive Metabolic Panel Stat Lactate (Lactic Acid) Stat Magnesium Stat NT-proBNP (BNP-Adult 18+) Stat Procalcitonin Stat Troponin & CK Cardiac Panel Stat 07/27/21 02:40 COVID19 -Nasal swab/Pre-Proc Stat 07/27/21 03:00 COVID19 - ADMIT (SERVICE NOW DEVELOPER swab/PCR) Stat 07/27/21 03:02 Urine Drug Screen, Rapid Stat Acetaminophen (Acetaminophen 325 Mg Tablet) 650 mg PO Q6HR PRN PRN Reason: Fever/Mild Pain (1-3) Last Admin: 07/27/21 04:16 Dose: 650 mg Documented by: [email or web address] Albuterol (Albuterol 2.5 Mg/3 Ml Neb (Adult)) 2.5 mg INH [id number] PRN PRN Reason: Shortness Of Breath Sodium Chloride (Normal Saline 0.9%) 1,000 mls @ 150 mls/hr IV CONT PATRICIO Last Infusion: 07/27/21 03:51 Dose: 0 mls/hr Documented by: Admin: 07/27/21 02:36 Dose: 150 mls/hr Documented by: [email or web address] Methylprednisolone (Methylprednisolone 125 Mg/2 Ml Vial) 60 mg IV Q6H PATRICIO Last Admin: 07/27/21 04:15 Dose: 60 mg Documented by: [email or web address] Discontinued Medications Albuterol/Ipratropium (Albuterol/Ipratropium 3 Ml Ampul) 3 ml INH NOW ONE Stop: 07/27/21 03:10 Last Admin: 07/27/21 03:25 Dose: 3 ml Documented by: AYSE Methylprednisolone (Methylprednisolone 125 Mg/2 Ml Vial) 125 mg IV NOW ONE Stop: 07/27/21 02:35 Last Admin: 07/27/21 02:37 Dose: 125 mg Documented by: ANITA Ondansetron HCl (Ondansetron 4 Mg/2 Ml Inj) 4 mg IV NOW ONE Stop: 07/27/21 02:27 Last Admin: 07/27/21 02:35 Dose: 4 mg Documented by: ANITA Vital Signs Vital signs: Vital Signs - 8 hr 07/27/21 02:21 Temperature 97.8 F Pulse Rate 92 H Respiratory Rate 16 Blood Pressure 154/72 H Pulse Oximetry 96 MDM - SOB/Dyspnea Lab Data Result diagrams: 07/27/21 02:34 07/27/21 02:34 Labs: Lab Results 07/27/21 07/27/21 07/27/21 Range/Units 02:34 02:34 02:34 WBC 6.1 (4.5-11.0) X10^3/uL RBC 4.12 (4.0-5.2) X10^6/uL Hgb 11.5 L (12.0-16.0) g/dL Hct 34.9 L (36-46) % MCV 84.7 (80-100) fL MCH 28.0 (26-34) PG MCHC 33.0 (30-36) % RDW 14.1 (11.6-14.8) % Plt Count 325 (150-400) X10^3/uL Neut % (Auto) 68.6 (50-75) % Lymph % (Auto) 18.1 L (25-40) % [place] % (Auto) 7.6 (3-14) % Eos % (Auto) 5.0 H (2-4) % Baso % (Auto) 0.7 (0-2) % Neut # (Auto) 4200 (6293-4111) /uL Lymph # (Auto) 1100 (4263-1905) /uL [place] # (Auto) 500 (0-900) /uL Eos # (Auto) 300 (0-450) /uL Baso # (Auto) 0 (0-100) /uL Sodium 140 (137-145) mmol/L Potassium 3.8 (3.4-5.1) mmol/L Chloride 105 (98-107) mmol/L Carbon Dioxide 31 (22-32) mmol/L BUN 16 (7-17) mg/dL Creatinine 0.85 (0.52-1.04) mg/dL Estimated GFR > 60.0 (>60) mL/min BUN/Creatinine Ratio 18.8 (6-22) Glucose 130 H (70-100) mg/dL Lactate 1.2 (0.7-2.1) mmol/L Calcium 9.1 (8.4-10.2) mg/dL Magnesium 1.9 (1.6-2.3) mg/dL Total Bilirubin 0.2 (0.2-1.3) mg/dL AST 23 (14-36) IU/L ALT 19 (<35) IU/L Alkaline Phosphatase 110 (38-126) U/L Total Creatine Kinase 92 (30-135) U/L CK-MB (CK-2) TNP CK-MB (CK-2) Rel Index TNP Troponin I < 0.012 (0.01-0.034) ng/mL NT-Pro-B Natriuret Pep 39 (<125) pg/mL Total Protein 7.6 (6.3-8.2) g/dL Albumin 3.9 (3.5-5.0) g/dL Globulin 3.7 (1.7-4.1) g/dL Albumin/Globulin Ratio 1.1 (1.0-2.8) Procalcitonin 0.05 (<0.5) ng/mL U Opiates 300ng/mL cut (Negative) Ur Oxycodone Screen (Negative) Urine Methadone Screen (Negative) Ur Barbiturates Screen (Negative) U Tricyclic Antidepress (Negative) Ur Phencyclidine Scrn (Negative) Ur Amphetamines Screen (Negative) U Methamphetamines Scrn (Negative) Ur MDMA Scrn (Ecstasy) (Negative) U Benzodiazepines Scrn (Negative) Urine Cocaine Screen (Negative) U Marijuana (THC) Screen (Negative) SARS-CoV-2 (PCR) (Negative) 07/27/21 07/27/21 07/27/21 Range/Units 02:40 03:00 03:02 WBC (4.5-11.0) X10^3/uL RBC (4.0-5.2) X10^6/uL Hgb (12.0-16.0) g/dL Hct (36-46) % MCV (80-100) fL MCH (26-34) PG MCHC (30-36) % RDW (11.6-14.8) % Plt Count (150-400) X10^3/uL Neut % (Auto) (50-75) % Lymph % (Auto) (25-40) % [place] % (Auto) (3-14) % Eos % (Auto) (2-4) % Baso % (Auto) (0-2) % Neut # (Auto) (9437-5222) /uL Lymph # (Auto) (5476-7411) /uL [place] # (Auto) (0-900) /uL Eos # (Auto) (0-450) /uL Baso # (Auto) (0-100) /uL Sodium (137-145) mmol/L Potassium (3.4-5.1) mmol/L Chloride (98-107) mmol/L Carbon Dioxide (22-32) mmol/L BUN (7-17) mg/dL Creatinine (0.52-1.04) mg/dL Estimated GFR (>60) mL/min BUN/Creatinine Ratio (6-22) Glucose (70-100) mg/dL Lactate (0.7-2.1) mmol/L Calcium (8.4-10.2) mg/dL Magnesium (1.6-2.3) mg/dL Total Bilirubin (0.2-1.3) mg/dL AST (14-36) IU/L ALT (<35) IU/L Alkaline Phosphatase (38-126) U/L Total Creatine Kinase (30-135) U/L CK-MB (CK-2) CK-MB (CK-2) Rel Index Troponin I (0.01-0.034) ng/mL NT-Pro-B Natriuret Pep (<125) pg/mL Total Protein (6.3-8.2) g/dL Albumin (3.5-5.0) g/dL Globulin (1.7-4.1) g/dL Albumin/Globulin Ratio (1.0-2.8) Procalcitonin (<0.5) ng/mL U Opiates 300ng/mL cut Positive H (Negative) Ur Oxycodone Screen Negative (Negative) Urine Methadone Screen Positive H (Negative) Ur Barbiturates Screen Negative (Negative) U Tricyclic Antidepress Negative (Negative) Ur Phencyclidine Scrn Negative (Negative) Ur Amphetamines Screen Positive H (Negative) U Methamphetamines Scrn Positive H (Negative) Ur MDMA Scrn (Ecstasy) Positive H (Negative) U Benzodiazepines Scrn Negative (Negative) Urine Cocaine Screen Negative (Negative) U Marijuana (THC) Screen Positive H (Negative) SARS-CoV-2 (PCR) Negative Negative (Negative) Urine Dip Bedside Urine Glucose Negative Bedside Urine Bilirubin - Negative Bedside Urine Ketone - Negative Urine Specific [place] 1.030 Bedside Urine Occult Blood - Negative Bedside Urine pH 6.0 Bedside Urine Protein - Negative Bedside Urine Urobilinogen - Negative Bedside Urine Nitrite + Positive Bedside Urine Leukocytes - Negative Esterase Discharge Plan Departure Patient Disposition: Admitted as Observation Clinical Impression: Chlorine gas exposure Admit Date/Time: 07/27/21 03:26 Admit Provider: Shin Banegas
[2021-07-27] MEDS: ONDANSETRON 4 MG/2 ML INJ IV (02:35)
[2021-07-27] MEDS: SODIUM CHLORIDE 0.9% 1,000 ML 150 ML IV (02:36)
[2021-07-27] MEDS: methylPREDNISolone 125 MG/2 ML VIAL IV (02:37)
[2021-07-27 02:50] LABS: Eosinophils Absolute Auto 300 /uL (0-450); Hemoglobin 11.5 g/dL (12.0-16.0); Monocytes Absolute Auto 500 /uL (0-900); White Blood Cell Count 6.1 X10^3/uL (4.5-11.0)
[2021-07-27 02:51] LABS: Alanine Aminotransferase 19 IU/L (<35); Albumin 3.9 g/dL (3.5-5.0); Albumin Globulin Ratio 1.1 (1.0-2.8); Alkaline Phosphatase 110 U/L (38-126); Aspartate Aminotransferase 23 IU/L (14-36); BUN Creatinine Ratio 18.8 (6-22); Bilirubin Total 0.2 mg/dL (0.2-1.3); Blood Urea Nitrogen 16 mg/dL (7-17); Calcium 9.1 mg/dL (8.4-10.2); Carbon Dioxide 31 mmol/L (22-32); Chloride 105 mmol/L (98-107); Creatine Kinase 92 U/L (30-135); Estimated Glomerular Filt Rate > 60.0 mL/min (>60); Globulin 3.7 g/dL (1.7-4.1); Glucose 130 mg/dL (70-100); HEMOLYSIS < 15 (0-50); Lactate (Lactic Acid) 1.2 mmol/L (0.7-2.1); Magnesium 1.9 mg/dL (1.6-2.3); Potassium 3.8 mmol/L (3.4-5.1); Sodium 140 mmol/L (137-145); Total Protein 7.6 g/dL (6.3-8.2)
[2021-07-27 02:53] LABS: Add Manual Diff / Slide Review NO; Basophils Absolute Auto 0 /uL (0-100); Basophils Percent Auto 0.7 % (0-2); Hematocrit 34.9 % (36-46); Lymphocytes Absolute Auto 1100 /uL (1100-4500); Lymphocytes Percent Auto 18.1 % (25-40); Mean Corpuscular Volume 84.7 fL (80-100); Monocytes Percent Auto 7.6 % (3-14); Neutrophils Absolute Auto 4200 /uL (1500-7000); Neutrophils Percent Auto 68.6 % (50-75); Platelet Count 325 X10^3/uL (150-400); Red Blood Cell Count 4.12 X10^6/uL (4.0-5.2); Red Cell Distribution Width 14.1 % (11.6-14.8)
[2021-07-27 03:00] LABS: COVID19 -Nasal RAPID Negative (Negative)
[2021-07-27 03:03] LABS: NT-proBNP (BNP-Adult 18+) 39 pg/mL (<125); Troponin I < 0.012 ng/mL (0.01-0.034)
[2021-07-27 03:08] LABS: Procalcitonin 0.05 ng/mL (<0.5)
[2021-07-27 03:17] LABS: UR Morphine/Opiate cutoff 300 Positive (Negative); Ur Creatinine Normal (Normal); Ur Specific Gravity Normal (Normal); Urine Amphetamines Positive (Negative); Urine Barbiturates Negative (Negative); Urine Benzodiazepines Negative (Negative); Urine Cocaine Negative (Negative); Urine MDMA Positive (Negative); Urine Methadone Positive (Negative); Urine Methamphetamines Positive (Negative); Urine Oxycodone Negative (Negative); Urine Phencyclidine Negative (Negative); Urine Tetrahydrocannabinol Positive (Negative); Urine Tricyclic Antidepressant Negative (Negative); Urine pH Normal (Normal)
[2021-07-27] MEDS: ALBUTEROL/IPRATROPIUM 3 ML AMPUL INH (03:25)
[2021-07-27 03:28] VITALS: BMI 36.0
[2021-07-27 03:50] VITALS: PULSE 99; RESP 20; O2SAT 99
[2021-07-27 03:57] LABS: COVID19 - ADMIT (NP swab/PCR) Negative (Negative)
[2021-07-27 04:00] VITALS: BP 140/84; PULSE 85; RESP 18; TEMP 36.6; O2SAT 94
--- NOTE | 2021-07-27 04:03 | P.HP_ITS ---
History of Present Illness History of Present Illness Date Patient Seen: 07/27/21 Time Patient Seen: 03:30 Chief complaint: difficulty breathing Narrative: Ms. Pink is a 56W with PMH of substance abuse (heroin, meth), on methadone, smoker supposed to be on PM O2 but not using it, chronic lower extremity swelling who presents to the hospital with shortness of breath. Earlier this evening the patient was cleaning her bathroom, she combine lysol and chlorox fur dry cleaner. She was in the bathroom for approximately 10 minutes. She then became sweaty, nauseous, pale, short of breath. She started wheezing. She developed a headache as well. Because of this she came to the ED. In the ED workup was done, vitals notable for mild tachycardia, O2 sat normal at 96%. Labs notable for Hgb 11.5, creatinine 0.85, lactate 1.2. U tox positive for opiates, methadone, amphetamine/methamphetamine, mdma, marijuana. She was ordered for nebulizers and steroids. Poison control was contacted and recommended admission due to possibility of delayed respiratory distress. She was admitted for further treatment. Family history: Mother with cardiac disease, cardiac arrest Patient History Medical History Acid reflux Opioid use disorder Family & Social History Safety & Behavioral: Feels Safe in Current Yes Environment Tobacco & Substance use: Smoking Status Current every day smoker alcohol intake frequency 0-2 drinks per day Substance Use Type marijuana Meds Home Medications and Allergies Home Medications Medication Instructions Recorded Confirmed Type LISINOPRIL (Zestril / Prinivil) 40 mg PO DAILY #0 10/17/09 07/27/21 History FERROUS GLUCONATE (#FERATE) 27 mg PO Q DAY #0 07/25/11 07/27/21 History hydrochlorothiazide 25 mg tablet 25 mg PO QDAY #0 12/13/11 History omeprazole 20 mg capsule,delayed 20 mg PO QDAY #0 12/13/11 07/27/21 History release BusPIRone Hydrochloride (BUSPAR 15 mg PO TID #0 05/14/13 07/27/21 History DIVIDOSE~) hydroxyzine pamoate 25 mg capsule 25 mg PO Q6HP #0 05/14/13 07/27/21 History (Vistaril) VITAMIN D (Vitamin D3) 250 mg PO DAILY #0 04/11/17 07/27/21 History furosemide 20 mg tablet (Lasix) 20 #0 04/11/17 History gabapentin 300 mg capsule 300 mg PO TID #0 04/11/17 07/27/21 History (Neurontin) potassium chloride 8 mEq 10 meq PO DAILY #0 04/11/17 07/27/21 History tablet,extended release (Klor-Con) methadone 5 mg tablet 140 mg PO DAILY #0 04/14/17 07/27/21 History Allergies Allergy/AdvReac Type Severity Reaction Status Date / Time amitriptyline AdvReac Verified 07/27/21 02:21 From MOTRIN AdvReac Unknown Heartburn Uncoded 05/09/20 16:42 Review of Systems Review of Systems Narrative: 14 systems reviewed and negative aside from HPI Exam Vital Signs (past 8 hours): - 07/27/21 02:21 07/27/21 03:50 Temperature 97.8 F Pulse Rate 92 H 99 H Respiratory Rate 16 20 Blood Pressure 154/72 H Pulse Oximetry 96 99 Oxygen Delivery Method Nasal Cannula Oxygen Flow Rate 2 Narrative Exam Narrative: GEN: sleepy, no acute distress HEENT: moist mucous membranes, PERRL NECK: no jvd, trachea midline CV: regular rate and rhythm, no murmurs PULM: wheezes, coarse breath sounds bilaterally ABD: soft, nontender, nondistended, no organomegaly, normal bowel sounds EXT: 2+ edema bilaterally, tender to palpation, warm and well perfused NEURO: sleepy, arouses easily to voice, moving all extremities with no focal deficits SKIN: mild erythema bilateral extremities PSYCH: irritable Objective Labs Result Diagrams: 07/27/21 02:34 07/27/21 02:34 Labs: Laboratory Results - last 24 hr 07/27/21 07/27/21 07/27/21 02:34 02:34 02:34 WBC 6.1 RBC 4.12 Hgb 11.5 L Hct 34.9 L MCV 84.7 MCH 28.0 MCHC 33.0 RDW 14.1 Plt Count 325 Neut % (Auto) 68.6 Lymph % (Auto) 18.1 L [place] % (Auto) 7.6 Eos % (Auto) 5.0 H Baso % (Auto) 0.7 Neut # (Auto) 4200 Lymph # (Auto) 1100 [place] # (Auto) 500 Eos # (Auto) 300 Baso # (Auto) 0 Sodium 140 Potassium 3.8 Chloride 105 Carbon Dioxide 31 BUN 16 Creatinine 0.85 Estimated GFR > 60.0 BUN/Creatinine Ratio 18.8 Glucose 130 H Lactate 1.2 Calcium 9.1 Magnesium 1.9 Total Bilirubin 0.2 AST 23 ALT 19 Alkaline Phosphatase 110 Total Creatine Kinase 92 CK-MB (CK-2) TNP CK-MB (CK-2) Rel Index TNP Troponin I < 0.012 NT-Pro-B Natriuret Pep 39 Total Protein 7.6 Albumin 3.9 Globulin 3.7 Albumin/Globulin Ratio 1.1 Procalcitonin 0.05 U Opiates 300ng/mL cut Ur Oxycodone Screen Urine Methadone Screen Ur Barbiturates Screen U Tricyclic Antidepress Ur Phencyclidine Scrn Ur Amphetamines Screen U Methamphetamines Scrn Ur MDMA Scrn (Ecstasy) U Benzodiazepines Scrn Urine Cocaine Screen U Marijuana (THC) Screen SARS-CoV-2 (PCR) 07/27/21 07/27/21 07/27/21 02:40 03:00 03:02 WBC RBC Hgb Hct MCV MCH MCHC RDW Plt Count Neut % (Auto) Lymph % (Auto) [place] % (Auto) Eos % (Auto) Baso % (Auto) Neut # (Auto) Lymph # (Auto) [place] # (Auto) Eos # (Auto) Baso # (Auto) Sodium Potassium Chloride Carbon Dioxide BUN Creatinine Estimated GFR BUN/Creatinine Ratio Glucose Lactate Calcium Magnesium Total Bilirubin AST ALT Alkaline Phosphatase Total Creatine Kinase CK-MB (CK-2) CK-MB (CK-2) Rel Index Troponin I NT-Pro-B Natriuret Pep Total Protein Albumin Globulin Albumin/Globulin Ratio Procalcitonin U Opiates 300ng/mL cut Positive H Ur Oxycodone Screen Negative Urine Methadone Screen Positive H Ur Barbiturates Screen Negative U Tricyclic Antidepress Negative Ur Phencyclidine Scrn Negative Ur Amphetamines Screen Positive H U Methamphetamines Scrn Positive H Ur MDMA Scrn (Ecstasy) Positive H U Benzodiazepines Scrn Negative Urine Cocaine Screen Negative U Marijuana (THC) Screen Positive H SARS-CoV-2 (PCR) Negative Negative Assessment & Plan Assessment & Plan narrative: Ms. Pink is a 56W with PMH substance abuse, tobacco abuse, HTN who presents with chlorine gas inhalation causing respiratory distress. 1. Acute respiratory distress -no hypoxemia -patient clearly wheezing and having some increased work of breathing -per poison control can have delayed reaction to exposure, recommend continue surveillance -continue IV methylpred and PRN nebulizers 2. Opiate/meth abuse -per patient is on methadone -confirm dose before giving medication -patient currently sleepy, will hold off on further sedating meds for now 3. Tobacco abuse -encouraged cessation 4. Hypertension -hold home meds for now CODE: Full Proxy: Bennett Pink, spouse I have utilized all available immediate resources to obtain, update, or review the patient's current medications. Time Spent With Patient Critical Care time: I spent a total of [] minutes of critical care time on this patient's care today; this time is exclusive of procedural time. Quality MIPS - Admit I confirm the patient?s Advance Care Plan is present, Code status is documented, Surrogate decision maker is in patient?s record [If Yes, STOP here]: Yes
[2021-07-27] MEDS: methylPREDNISolone 125 MG/2 ML VIAL 60 MG IV (04:15)
[2021-07-27] MEDS: ACETAMINOPHEN 325 MG TABLET 650 MG PO (04:16)
[2021-07-27 05:39] LABS: Add Manual Diff / Slide Review NO; Basophils Absolute Auto 0 /uL (0-100); Basophils Percent Auto 0.3 % (0-2); Eosinophils Absolute Auto 100 /uL (0-450); Eosinophils Percent Auto 0.8 % (2-4); Hematocrit 34.7 % (36-46); Hemoglobin 11.5 g/dL (12.0-16.0); Lymphocytes Absolute Auto 600 /uL (1100-4500); Lymphocytes Percent Auto 8.2 % (25-40); Mean Corpuscular HGB Conc 33.2 % (30-36); Mean Corpuscular Hemoglobin 27.9 PG (26-34); Mean Corpuscular Volume 84.1 fL (80-100); Monocytes Absolute Auto 100 /uL (0-900); Monocytes Percent Auto 1.5 % (3-14); Neutrophils Absolute Auto 6900 /uL (1500-7000); Neutrophils Percent Auto 89.2 % (50-75); Platelet Count 297 X10^3/uL (150-400); Red Blood Cell Count 4.13 X10^6/uL (4.0-5.2); Red Cell Distribution Width 13.9 % (11.6-14.8); White Blood Cell Count 7.7 X10^3/uL (4.5-11.0)
[2021-07-27 05:41] LABS: BUN Creatinine Ratio 21.4 (6-22); Blood Urea Nitrogen 15 mg/dL (7-17); Calcium 8.9 mg/dL (8.4-10.2); Carbon Dioxide 31 mmol/L (22-32); Chloride 107 mmol/L (98-107); Estimated Glomerular Filt Rate > 60.0 mL/min (>60); Glucose 115 mg/dL (70-100); HEMOLYSIS < 15 (0-50); Potassium 3.9 mmol/L (3.4-5.1); Sodium 140 mmol/L (137-145)
[2021-07-27 07:41] VITALS: BP 147/84; PULSE 90; RESP 16; TEMP 36.1; O2SAT 96
[2021-07-27 09:42] VITALS: BP 147/84
[2021-07-27] MEDS: GABAPENTIN 300 MG CAPSULE PO (09:42)
[2021-07-27] MEDS: lisinopriL 20 MG TABLET PO (09:42)
[2021-07-27] MEDS: METHADONE 10 MG TABLET 140 MG PO (09:42)
[2021-07-27] MEDS: hydroCHLOROthiazide 25 MG TABLET PO (09:43)
--- NOTE | 2021-07-27 10:07 | PM.DS.1 ---
History of Present Illness History of Present Illness Date Patient Seen: 07/27/21 Time Patient Seen: 10:07 Chief complaint: difficulty breathing Narrative: Per Dr. Banegas, Ms. Pink is a 56W with PMH of substance abuse (heroin, meth), on methadone, smoker supposed to be on PM O2 but not using it, chronic lower extremity swelling who presents to the hospital with shortness of breath. Earlier this evening the patient was cleaning her bathroom, she combine lysol and chlorox guide rail cleaner. She was in the bathroom for approximately 10 minutes. She then became sweaty, nauseous, pale, short of breath. She started wheezing. She developed a headache as well. Because of this she came to the ED. In the ED workup was done, vitals notable for mild tachycardia, O2 sat normal at 96%. Labs notable for Hgb 11.5, creatinine 0.85, lactate 1.2. U tox positive for opiates, methadone, amphetamine/methamphetamine, mdma, marijuana. She was ordered for nebulizers and steroids. Poison control was contacted and recommended admission due to possibility of delayed respiratory distress. She was admitted for further treatment. Family history: Mother with cardiac disease, cardiac arrest Discharge Providers Provider Date of admission: 07/27/21 03:26 Discharge Date: 07/27/21 Primary care physician: Marilynn Cheng MD Consults: 07/27/21 02:26 Consult to Respiratory Therapy Evaluate & Treat Comment: Physician Instructions: Evaluate and treat Discharge provider: Curly Zhou DO Summary Hospital Course Discharge Diagnosis: Please see hospital course by problem list noted below. Hospital Course: Ms. Pink is a 56W with PMH substance abuse, tobacco abuse, HTN who presents with chlorine gas inhalation causing respiratory distress. 1. Acute respiratory distress and chlorine gas exposure, probable COPD exacerbation. -no hypoxemia but had increased work of breathing after exposure to chlorine gas with chlorine bleach. -improved with initial steroids, given tobacco use and wheezing also presume COPD exacerbation though no prior diagnosis of COPD. No recurrence of symptoms. -will discharge with 4 additional days of prednisone for presumed COPD exacerbation in setting of gas exposure. 2. Opiate/meth abuse -per patient is on methadone, confirmed with [facility]. can resume on discharge with clinic. No 3. Tobacco abuse -encouraged cessation 4. Hypertension -no changes recommended. CODE: Full Proxy: Bennett Pink, spouse Exam Vital Signs (past 8 hours): - 07/27/21 02:21 07/27/21 03:50 07/27/21 04:00 Temperature 97.8 F 97.9 F Pulse Rate 92 H 99 H 85 Respiratory Rate 16 20 18 Blood Pressure 154/72 H 140/84 Pulse Oximetry 96 99 94 07/27/21 07:41 07/27/21 09:42 Temperature 96.9 F L Pulse Rate 90 Respiratory Rate 16 Blood Pressure 147/84 H 147/84 H Pulse Oximetry 96 Oxygen Delivery Method Nasal Cannula Oxygen Flow Rate 0 Narrative Exam Narrative: GEN: appears older than stated age, no acute distress HEENT: moist mucous membranes, PERRL NECK: no jvd, trachea midline CV: regular rate and rhythm, no murmurs PULM: mild expiratory wheezing in upper lobes bilaterally, no rhochi or rales. ABD: soft, nontender, nondistended, no organomegaly, normal bowel sounds EXT: 2+ edema bilaterally, tender to palpation, warm and well perfused, chronic venous stasis changes NEURO: moving all extremities with no focal deficits SKIN: mild erythema bilateral extremities PSYCH: calm,cooperative Objective Labs Result Diagrams: 07/27/21 05:20 07/27/21 05:20 Labs: Laboratory Results - last 24 hr 07/27/21 07/27/21 07/27/21 02:34 02:34 02:34 WBC 6.1 RBC 4.12 Hgb 11.5 L Hct 34.9 L MCV 84.7 MCH 28.0 MCHC 33.0 RDW 14.1 Plt Count 325 Neut % (Auto) 68.6 Lymph % (Auto) 18.1 L Griggs % (Auto) 7.6 Eos % (Auto) 5.0 H Baso % (Auto) 0.7 Neut # (Auto) 4200 Lymph # (Auto) 1100 Griggs # (Auto) 500 Eos # (Auto) 300 Baso # (Auto) 0 Sodium 140 Potassium 3.8 Chloride 105 Carbon Dioxide 31 BUN 16 Creatinine 0.85 Estimated GFR > 60.0 BUN/Creatinine Ratio 18.8 Glucose 130 H Lactate 1.2 Calcium 9.1 Magnesium 1.9 Total Bilirubin 0.2 AST 23 ALT 19 Alkaline Phosphatase 110 Total Creatine Kinase 92 CK-MB (CK-2) TNP CK-MB (CK-2) Rel Index TNP Troponin I < 0.012 NT-Pro-B Natriuret Pep 39 Total Protein 7.6 Albumin 3.9 Globulin 3.7 Albumin/Globulin Ratio 1.1 Procalcitonin 0.05 U Opiates 300ng/mL cut Ur Oxycodone Screen Urine Methadone Screen Ur Barbiturates Screen U Tricyclic Antidepress Ur Phencyclidine Scrn Ur Amphetamines Screen U Methamphetamines Scrn Ur MDMA Scrn (Ecstasy) U Benzodiazepines Scrn Urine Cocaine Screen U Marijuana (THC) Screen SARS-CoV-2 (PCR) 07/27/21 07/27/21 07/27/21 02:40 03:00 03:02 WBC RBC Hgb Hct MCV MCH MCHC RDW Plt Count Neut % (Auto) Lymph % (Auto) Griggs % (Auto) Eos % (Auto) Baso % (Auto) Neut # (Auto) Lymph # (Auto) Griggs # (Auto) Eos # (Auto) Baso # (Auto) Sodium Potassium Chloride Carbon Dioxide BUN Creatinine Estimated GFR BUN/Creatinine Ratio Glucose Lactate Calcium Magnesium Total Bilirubin AST ALT Alkaline Phosphatase Total Creatine Kinase CK-MB (CK-2) CK-MB (CK-2) Rel Index Troponin I NT-Pro-B Natriuret Pep Total Protein Albumin Globulin Albumin/Globulin Ratio Procalcitonin U Opiates 300ng/mL cut Positive H Ur Oxycodone Screen Negative Urine Methadone Screen Positive H Ur Barbiturates Screen Negative U Tricyclic Antidepress Negative Ur Phencyclidine Scrn Negative Ur Amphetamines Screen Positive H U Methamphetamines Scrn Positive H Ur MDMA Scrn (Ecstasy) Positive H U Benzodiazepines Scrn Negative Urine Cocaine Screen Negative U Marijuana (THC) Screen Positive H SARS-CoV-2 (PCR) Negative Negative 07/27/21 07/27/21 05:20 05:20 WBC 7.7 RBC 4.13 Hgb 11.5 L Hct 34.7 L MCV 84.1 MCH 27.9 MCHC 33.2 RDW 13.9 Plt Count 297 Neut % (Auto) 89.2 H D Lymph % (Auto) 8.2 L Griggs % (Auto) 1.5 L Eos % (Auto) 0.8 L Baso % (Auto) 0.3 Neut # (Auto) 6900 Lymph # (Auto) 600 L Griggs # (Auto) 100 Eos # (Auto) 100 Baso # (Auto) 0 Sodium 140 Potassium 3.9 Chloride 107 Carbon Dioxide 31 BUN 15 Creatinine 0.70 Estimated GFR > 60.0 BUN/Creatinine Ratio 21.4 Glucose 115 H Lactate Calcium 8.9 Magnesium Total Bilirubin AST ALT Alkaline Phosphatase Total Creatine Kinase CK-MB (CK-2) CK-MB (CK-2) Rel Index Troponin I NT-Pro-B Natriuret Pep Total Protein Albumin Globulin Albumin/Globulin Ratio Procalcitonin U Opiates 300ng/mL cut Ur Oxycodone Screen Urine Methadone Screen Ur Barbiturates Screen U Tricyclic Antidepress Ur Phencyclidine Scrn Ur Amphetamines Screen U Methamphetamines Scrn Ur MDMA Scrn (Ecstasy) U Benzodiazepines Scrn Urine Cocaine Screen U Marijuana (THC) Screen SARS-CoV-2 (PCR) [facility] Medical History Acid reflux Opioid use disorder Social History household members: spouse Smoking Status: Current every day smoker Discharge Plan Discharge Plan Patient Disposition: Home Provider Discharge Comment: You were admitted for observation after toxic exposure probably from bleach. You improved with time, started on steroids for presumed COPD exacerbation. No other medication changes are necessary. Discharge orders & Medications Prescriptions: New prednisone 20 mg tablet 40 mg PO DAILY 4 Days Qty: 8 RF: 0 Continued LISINOPRIL (Zestril / Prinivil) 40 mg PO DAILY Qty: 0 RF: 0 FERROUS GLUCONATE (#FERATE) 27 mg PO Q DAY Qty: 0 RF: 0 omeprazole 20 MG capsule,delayed release(DR/EC) 20 mg PO QDAY Qty: 0 RF: 0 hydrochlorothiazide 25 MG tablet 25 mg PO QDAY Qty: 0 RF: 0 hydroxyzine pamoate [Vistaril] 25 MG capsule 25 mg PO Q6HP Qty: 0 RF: 0 BusPIRone Hydrochloride (BUSPAR DIVIDOSE~) 15 mg PO TID Qty: 0 RF: 0 potassium chloride [Klor-Con 8] 8 MEQ tablet extended release 10 meq PO DAILY Qty: 0 RF: 0 furosemide [Lasix] 20 MG tablet 20 mg PO DAILY Qty: 0 RF: 0 gabapentin [Neurontin] 300 MG capsule 300 mg PO TID Qty: 0 RF: 0 VITAMIN D (Vitamin D3) bottle 250 mg PO DAILY Qty: 0 RF: 0 methadone 5 MG tablet 140 mg PO DAILY Qty: 0 RF: 0 Follow up/Referrals: Marilynn Cheng MD [Primary Care Provider] - Diet/Activity/Treatments Diet: Diet as Tolerated Activity: As tolerated Visit Report/Discharge Packet Instructions: DI for Prescription Opioid Use Discharge Data Primary Care Provider: Marilynn Cheng Attending Provider: Shin Banegas
--- NOTE | 2021-07-27 10:48 | CM.DANOTE ---
DCP: Case received, EMR reviewed and met with patient. Introduced self and role. Was able to obtain information from patient regarding her baseline activity status at home prior to hospitalization, as well as he current living situation. DCP assessment completed with information currently available. Patient is a 56 year old female who admitted early this morning to the care of the hospitalist team. PCP: Provider at [facility] Payer: confirmed: [facility]. Patient came to the hospital via private vehicle secondary to having some respiratory issues secondary to inhaling some cleansers while cleaning her bathroom. Patient was diagnosed with acute respiratory distress. Patient has history of substance abuse, and was positive for meth amphetamine, amphetamine, and ecstacy. Patient does go to the [facility]. Met with patient in her room. She had completed her shower, she was sitting on the edge of her bed. She is alert and oriented. Confirmed that she resides in [place] with her spouse, Bennett. Stated that her handicapped son who is 32, would be moving in with them. She has a walker at her baseline, and home oxygen, which she does not use. Asked her about going to the [facility], stated, she goes every other week. Asked her if she is currently taking any drugs, indicated, only for pain, because she has severe arthritis. She wanted to know, would the hospital provide her with Methadone if she leaves tomorrow, since they are closed. Let her know that this can be discussed with provider. Called [facility] to inquire if they do routine UA on their patients. They indicated, they usually do random UA checks. Checked with nurse, Fabby. If patient discharges today, she will need to get her Methadone at the [facility]. P: Patient is to be discharged home today, and she will need to follow up with [facility] clinic. Patria Daniels RN/Barrel Turner Discharge Planning/Care Management CM Discharge Assessment Start: 07/27/21 10:41 Freq: Status: Active Protocol: Document 07/27/21 10:41 (Rec: 07/27/21 10:47 [id number]) Discharge Planning Assessment Assigned Supervisor Type Photography Patria Daniels RN/Barrel Turner Advance Directives? No History Provided By Patient,Medical Record Prior Living Arrangements House Household Members spouse Type of transporation used prior to Drives own vehicle admit Independent with ADL's Yes Is patient alert and oriented? Yes Needs Assistance With Home Chores / Shopping Caregiver for Another Yes: Patient indicated that her handi-capped son is moving in with them DME Already Rented / Owned FWW / Walker,Oxygen Comment Patient does not always use oxygen, according to spouse. Barriers to Discharge No Discharge Plan Home Transportation Arrangement Spouse Referrals Initiated None needed Whiteboard Updated in Patient Room with Yes name and ext. # of Supervisor Type Photography Review Status In Process Next Review Type Continued Stay Review
--- NOTE | 2021-07-27 11:30 | PC.NURSE ---
Discharge note: IV discontinued, discharge instructions reviewed with patient including safety while taking opiod medications. Pt will follow up with provider at [facility]. She sees them daily for her Methadone dose. She states she will continue to observe her left lower extremity redness and notify her provider at [facility] if it gets worse. Discharged home, driving. Wheeled to car in wheelchair, escorted by Joanie BESS.
== END 2021-07-27 11:33 | disposition home or self-care (01) ==
LOC: ED 03:08 → AC 03:27
PROVIDERS: Admitting Provider Internal Medicine; Emergency Provider Emergency Medicine; PCP Family Medicine; Referring Provider Emergency Medicine; Visit Provider Internal Medicine
DX: R06.03 Acute respiratory distress (principal); J44.1 Chronic obstructive pulmonary disease with (acute) exacerbation; T59.4X1A Toxic effect of chlorine gas, accidental (unintentional), initial encounter; F11.10 Opioid abuse, uncomplicated; F15.10 Other stimulant abuse, uncomplicated; I10 Essential (primary) hypertension; F17.200 Nicotine dependence, unspecified, uncomplicated; Z20.822 Contact with and (suspected) exposure to COVID-19
CPT/HCPCS: 36415; 71045; 80048; 80053; 80305; 81003; 82550; 83605; 83735; 83880; 84145; 84484; 85025; 87635; 93005; 93010; 96361; 96374; 96375; 99285; C9803; G0378; J2405; J2930

== ENCOUNTER 2022-05-03 13:08 | Emergency (ER) | payer OTHER, SELFPAY ==
[2022-05-03] VITALS (12 sets, daily range): BP systolic 125–160; BP diastolic 60–97; PULSE 81–89; RESP 18–20; TEMP 37.1; O2SAT 92–98; BMI 30.9
--- NOTE | 2022-05-03 13:33 | DI.RAD.S_ITS ---
PROCEDURE: XR RIBS LT 2V INDICATIONS: pain TECHNIQUE: 2 views of the left ribs were acquired. COMPARISON: [facility], CR, XR CHEST 1V, 07/27/2021, 2:46. [facility], CT, CT ANGIO CHEST PE, 12/12/2020, 20:18. FINDINGS: Surgical changes and devices: None. Bones and chest wall: No fractures or dislocations. No suspicious bony lesions. Overlying soft tissues appear unremarkable. Lungs and pleura: There is mild pleural thickening along the lateral aspect of the mid thorax. The visualized lung appears clear. No pleural effusions or pneumothorax are visible. IMPRESSION: No acute rib fracture. Mild pleural thickening, similar to the comparison chest CT. Dictated by: Amari العراقي D.O. on 05/03/2022 at 13:19 Approved by: Amari العراقي D.O. on 05/03/2022 at 13:23
--- NOTE | 2022-05-03 13:37 | PC.NURSE ---
Pt has been having constant rib pain since thursday. states she woke up with this pain and it has progressively gotten worse until today, she didn't feel like she could carry out her daily activities. pt also c/o pain under her left knee. left lower leg is swollen and red, not warm to touch. she states pain is midline under knee cap and radiates down to her ankle. no specific site with sharp pain. she states this has been going on for years intermittently but was a lot worse in december 2021 when she was diagnosed with cellulitis and a clot in her left calf at [facility]. hx of arthritis noted.
--- NOTE | 2022-05-03 13:46 | ED.BACK ---
HPI - Back Pain/Injury <Doreen Lainez, [facility] - Last Filed: 05/05/22 21:24> General Chief Complaint: Back Pain/Injury Stated Complaint: Lt Side Pain Time Seen by Provider: 05/03/22 13:38 Source: patient History of Present Illness HPI Narrative: 54-year-old woman with a history of opioid use disorder currently on methadone and doing well metabolically who presents today for left-sided rib pain that she woke up with three days ago and states that it has been getting worse. She denies any recent trauma, denies any fever, changes to her bowels, any urinary symptoms, or other. Patient is very sleepy at this time, having difficulty trying to keep her eyes open, when asked about why she is so tired, she states that she stayed out late last night and they were having fun at the festivities in [facility]. When asked if patient took anything for pain or if she is on a pain contract she denies. She has a current prescription of methadone. Patient denies any recent fever, nausea vomiting, shortness of breath, difficulty breathing, weakness, denies dysuria or urinary frequency. She denies history of diabetes, denies any chest pain, weakness, or new sensation changes. Patient endorses recent visit to [facility], states she was diagnosed with rheumatoid arthritis. Related Data Home Medications Medication Instructions Recorded Confirmed LISINOPRIL (Zestril / Prinivil) 40 mg PO DAILY ##0 10/17/09 07/27/21 FERROUS GLUCONATE (#FERATE) 27 mg PO Q DAY ##0 07/25/11 07/27/21 hydrochlorothiazide 25 mg tablet 25 mg PO QDAY ##0 12/13/11 07/27/21 omeprazole 20 mg capsule,delayed 20 mg PO QDAY ##0 12/13/11 07/27/21 release BusPIRone Hydrochloride (BUSPAR 15 mg PO TID ##0 05/14/13 07/27/21 DIVIDOSE~) hydroxyzine pamoate 25 mg capsule 25 mg PO Q6HP ##0 05/14/13 07/27/21 (Vistaril) VITAMIN D (Vitamin D3) 250 mg PO DAILY ##0 04/11/17 07/27/21 furosemide 20 mg tablet (Lasix) 20 mg PO DAILY ##0 04/11/17 07/27/21 gabapentin 300 mg capsule 300 mg PO TID ##0 04/11/17 07/27/21 (Neurontin) potassium chloride 8 mEq 10 meq PO DAILY ##0 04/11/17 07/27/21 tablet,extended release (Klor-Con) methadone 5 mg tablet 140 mg PO DAILY ##0 04/14/17 07/27/21 Previous Rx's Medication Instructions Recorded ketorolac 10 mg tablet 10 mg PO Q6H PRN pain #14 tabs 05/03/22 lidocaine 5 % topical patch 1 patch topical DAILY #15 ea 05/03/22 (Lidoderm) Allergies Allergy/AdvReac Type Severity Reaction Status Date / Time ibuprofen AdvReac Unknown Heartburn Verified 07/27/21 08:57 amitriptyline AdvReac Verified 07/27/21 02:21 Review of Systems <HUSAM Medel - Last Filed: 05/05/22 21:24> Review of Systems Narrative: General: denies fever, chills, malaise, sweats, fatigue Head/Neck: denies headache, neck pain, dizziness Eyes: denies visual changes, eye pain Cardio: denies chest pain, palpitations, edema Respiratory: denies dyspnea, cough, orthopnea GI: denies abdominal pain, nausea, vomiting, or diarrhea : denies dysuria, hematuria, urinary retention, frequency or incontinence MSK: Endorses left upper lower pain without any trauma, it is tender to palpation, denies joint pain, muscle weakness Skin: denies rash, itching, skin lesions or other Neuro: denies numbness, tingling Patient History <HUSAM Medel - Last Filed: 05/05/22 21:24> Medical History (Updated 05/03/22 @ 17:49 by Luiz Bautista DO) Acid reflux Opioid use disorder Social History household members: spouse Smoking Status: Current every day smoker Smoking Status: Current every day smoker tobacco type: cigarettes alcohol intake frequency: 0-2 drinks per day Substance Use Type: marijuana Exam <HUSAM Medel - Last Filed: 05/05/22 21:24> Narrative Exam Narrative: Independently reviewed vitals signs and nursing notes. General: cooperative, comfortable, in no acute distress, patient is resting with her eyes closed, very sleepy and needs verbal prompting to wake up Head: atraumatic, symmetrical facial expressions Neck: supple Eyes: Pupils equal round and reactive and pinpoint, EOMI, conjunctiva normal Nose: nares patent, no rhinorrhea Mouth/Throat: moist mucus membranes Cardiovascular: regular rate and rhythm, no peripheral edema, warm extremities, S1-S2 without additional sounds, when palpating left ribs, patient was jumpy with tenderness Respiratory: normal effort, able to speak in complete sentences, no audible wheezing, stridor, or rales. No retractions or tachypnea. GI: abdomen soft, nontender to palpation, nondistended, no masses, no exquisite tenderness with exam, without guarding or rebound. MSK: moves all extremities, neurovascularly intact, no weakness, normal tone Skin: brisk capillary refill, no rash, no erythema, swelling in left lower extremity slightly more than right lower extremity with history of DVT and cellulitis but without any erythema, tenderness to palpation, new sensation changes, or weakness Neuro: normal speech and cognition, A&O x3 Psych: mental status is grossly normal, congruent mood, flat or depressed affect, pleasant and cooperative Initial Vital Signs Initial Vital Signs: Vital Signs Temperature 98.7 F 05/03/22 13:20 Pulse Rate 87 05/03/22 13:20 Respiratory Rate 20 05/03/22 13:20 Blood Pressure 160/78 H 05/03/22 13:20 Pulse Oximetry 98 05/03/22 13:20 Oxygen Delivery Method 05/03/22 13:20 <Luiz Bautista DO - Last Filed: 05/04/22 02:33> Initial Vital Signs Initial Vital Signs: Vital Signs Temperature 98.7 F 05/03/22 13:20 Pulse Rate 87 05/03/22 13:20 Respiratory Rate 20 05/03/22 13:20 Blood Pressure 160/78 H 05/03/22 13:20 Pulse Oximetry 98 05/03/22 13:20 Oxygen Delivery Method 05/03/22 13:20 Course <HUSAM Medel - Last Filed: 05/05/22 21:24> Orders Ordered: Discontinued Medications Ketorolac Tromethamine (Ketorolac 30 Mg/Ml Vial) 15 mg IV NOW ONE Stop: 05/03/22 17:46 Last Admin: 05/03/22 18:10 Dose: 15 mg Documented By: ADAN Lidocaine (Lidocaine Patch 1 Each Adh..Patch) 1 each TOP NOW ONE Stop: 05/03/22 17:46 Last Admin: 05/03/22 18:10 Dose: 1 each Documented By: ADAN Vital Signs Vital signs: Vital Signs - 8 hr 05/03/22 13:20 05/03/22 14:58 05/03/22 14:59 Temperature 98.7 F Pulse Rate 87 87 Respiratory Rate 20 Blood Pressure 160/78 H 140/76 Pulse Oximetry 98 94 Oxygen Delivery Method Room Air 05/03/22 14:59 05/03/22 15:00 Temperature Pulse Rate 87 84 Respiratory Rate Blood Pressure Pulse Oximetry 92 97 Oxygen Delivery Method <Luiz Bautista DO - Last Filed: 05/04/22 02:33> Orders Ordered: Discontinued Medications Ketorolac Tromethamine (Ketorolac 30 Mg/Ml Vial) 15 mg IV NOW ONE Stop: 05/03/22 17:46 Last Admin: 05/03/22 18:10 Dose: 15 mg Documented By: ADAN Lidocaine (Lidocaine Patch 1 Each Adh..Patch) 1 each TOP NOW ONE Stop: 05/03/22 17:46 Last Admin: 05/03/22 18:10 Dose: 1 each Documented By: ADAN Vital Signs Vital signs: Vital Signs - 8 hr 05/03/22 13:20 05/03/22 14:58 05/03/22 14:59 Temperature 98.7 F Pulse Rate 87 87 Respiratory Rate 20 Blood Pressure 160/78 H 140/76 Pulse Oximetry 98 94 Oxygen Delivery Method Room Air 05/03/22 14:59 05/03/22 15:00 Temperature Pulse Rate 87 84 Respiratory Rate Blood Pressure Pulse Oximetry 92 97 Oxygen Delivery Method MDM - Back Pain/Injury <HUSAM Medel - Last Filed: 05/05/22 21:24> Lab Data Result diagrams: 05/03/22 14:59 05/03/22 14:59 Labs: Lab Results 05/03/22 05/03/22 05/03/22 Range/Units 14:59 14:59 16:04 WBC 6.7 (4.5-11.0) X10^3/uL RBC 4.27 (4.0-5.2) X10^6/uL Hgb 12.1 (12.0-16.0) g/dL Hct 35.5 L (36-46) % MCV 83.0 (80-100) fL MCH 28.4 (26-34) PG MCHC 34.2 (30-36) % RDW 15.0 H (11.6-14.8) % Plt Count 282 (150-400) X10^3/uL Neut % (Auto) 74.0 (50-75) % Lymph % (Auto) 13.2 L (25-40) % [place] % (Auto) 6.8 (3-14) % Eos % (Auto) 5.3 H (2-4) % Baso % (Auto) 0.7 (0-2) % Neut # (Auto) 5000 (9595-7792) /uL Lymph # (Auto) 900 L (9330-8430) /uL [place] # (Auto) 500 (0-900) /uL Eos # (Auto) 400 (0-450) /uL Baso # (Auto) 0 (0-100) /uL Sodium 142 (137-145) mmol/L Potassium 3.4 (3.4-5.1) mmol/L Chloride 110 H (98-107) mmol/L Carbon Dioxide 27 (22-32) mmol/L BUN 16 (7-17) mg/dL Creatinine 0.71 (0.52-1.04) mg/dL Estimated GFR > 60 (>60) mL/min BUN/Creatinine Ratio 22.5 H (6-22) Glucose 87 (70-100) mg/dL Calcium 8.6 (8.4-10.2) mg/dL Total Bilirubin 0.3 (0.2-1.3) mg/dL AST 26 (14-36) IU/L ALT 18 (<35) IU/L Alkaline Phosphatase 109 (38-126) U/L Total Protein 7.7 (6.3-8.2) g/dL Albumin 4.1 (3.5-5.0) g/dL Globulin 3.6 (1.7-4.1) g/dL Albumin/Globulin Ratio 1.1 (1.0-2.8) Lipase 56 (23-300) U/L Urine RBC 1-5/hpf (0-5/HPF) Urine WBC 5-10/hpf H (0-5/HPF) Ur Squamous Epith Cells 1-5 /hpf (0-5/HPF) Ur Transition Epith Cell 1-5/hpf (0-5/HPF) Urine Bacteria Few (2-10) H (None) WBC Casts 1-5/lpf H (None) Urine Mucus 1+ H (Negative) Ur Culture Indicated? Specimen cultured Urine Dip Bedside Urine Glucose Negative Bedside Urine Bilirubin + 1 Bedside Urine Ketone - Negative Urine Specific [place] 1.03 Bedside Urine Occult Blood - Negative Bedside Urine pH 6 Bedside Urine Protein + 30 Bedside Urine Urobilinogen - Negative Bedside Urine Nitrite - Negative Bedside Urine Leukocytes - Negative Esterase Imaging Data Chest x-ray: Radiologist's Impression: PROCEDURE:? XR RIBS LT 2V ? INDICATIONS:? pain ? TECHNIQUE:? 2 views of the left ribs were acquired.? ? COMPARISON:? [facility], CR, XR CHEST 1V, 07/27/2021, 2:46.? [facility], CT, CT ANGIO CHEST PE, 12/12/2020, 20:18. ? FINDINGS:? ? Surgical changes and devices:? None.? ? Bones and chest wall:? No fractures or dislocations.? No suspicious bony lesions.? Overlying soft tissues appear unremarkable.? ? Lungs and pleura:? There is mild pleural thickening along the lateral aspect of the mid thorax.? The visualized lung appears clear.? No pleural effusions or pneumothorax are visible.? ? IMPRESSION:? ? No acute rib fracture. ? Mild pleural thickening, similar to the comparison chest CT. ? ? Dictated by: Amari العراقي D.O. on 05/03/2022 at 13:19 ? ? Approved by: Amari العراقي D.O. on 05/03/2022 at 13:23 ? <Luiz Bautista DO - Last Filed: 05/04/22 02:33> Lab Data Labs: Lab Results 05/03/22 05/03/22 05/03/22 Range/Units 14:59 14:59 16:04 WBC 6.7 (4.5-11.0) X10^3/uL RBC 4.27 (4.0-5.2) X10^6/uL Hgb 12.1 (12.0-16.0) g/dL Hct 35.5 L (36-46) % MCV 83.0 (80-100) fL MCH 28.4 (26-34) PG MCHC 34.2 (30-36) % RDW 15.0 H (11.6-14.8) % Plt Count 282 (150-400) X10^3/uL Neut % (Auto) 74.0 (50-75) % Lymph % (Auto) 13.2 L (25-40) % [place] % (Auto) 6.8 (3-14) % Eos % (Auto) 5.3 H (2-4) % Baso % (Auto) 0.7 (0-2) % Neut # (Auto) 5000 (7719-5826) /uL Lymph # (Auto) 900 L (2899-0095) /uL [place] # (Auto) 500 (0-900) /uL Eos # (Auto) 400 (0-450) /uL Baso # (Auto) 0 (0-100) /uL Sodium 142 (137-145) mmol/L Potassium 3.4 (3.4-5.1) mmol/L Chloride 110 H (98-107) mmol/L Carbon Dioxide 27 (22-32) mmol/L BUN 16 (7-17) mg/dL Creatinine 0.71 (0.52-1.04) mg/dL Estimated GFR > 60 (>60) mL/min BUN/Creatinine Ratio 22.5 H (6-22) Glucose 87 (70-100) mg/dL Calcium 8.6 (8.4-10.2) mg/dL Total Bilirubin 0.3 (0.2-1.3) mg/dL AST 26 (14-36) IU/L ALT 18 (<35) IU/L Alkaline Phosphatase 109 (38-126) U/L Total Protein 7.7 (6.3-8.2) g/dL Albumin 4.1 (3.5-5.0) g/dL Globulin 3.6 (1.7-4.1) g/dL Albumin/Globulin Ratio 1.1 (1.0-2.8) Lipase 56 (23-300) U/L Urine RBC 1-5/hpf (0-5/HPF) Urine WBC 5-10/hpf H (0-5/HPF) Ur Squamous Epith Cells 1-5 /hpf (0-5/HPF) Ur Transition Epith Cell 1-5/hpf (0-5/HPF) Urine Bacteria Few (2-10) H (None) WBC Casts 1-5/lpf H (None) Urine Mucus 1+ H (Negative) Ur Culture Indicated? Specimen cultured Urine Dip Bedside Urine Glucose Negative Bedside Urine Bilirubin + 1 Bedside Urine Ketone - Negative Urine Specific [place] 1.03 Bedside Urine Occult Blood - Negative Bedside Urine pH 6 Bedside Urine Protein + 30 Bedside Urine Urobilinogen - Negative Bedside Urine Nitrite - Negative Bedside Urine Leukocytes - Negative Esterase MDM Narrative Medical decision making narrative: Multiple etiologies for patient's symptoms considered including: [Pneumonia versus rib fracture versus contusion versus shingles versus other] Patient's symptoms improved over duration of stay with above-stated therapies. Findings and discharge diagnosis discussed with patient/family followed by verbalization of understanding Return precautions discussed with patient/family whom verbalize understanding. Discharge Plan Departure Patient Disposition: Home Clinical Impression: Left-sided chest wall pain Instructions: DI for Atypical Chest Pain Activity Restrictions/Additional Instructions: *You have been diagnosed with [atypical chest pain. As we discussed your history, exam, labs, and imaging are very reassuring and there is no indication of pneumonia, collapsed lung, rib fracture, shingles or other diagnosis which would require a specific or immediate intervention] *What to do: *Please continue to take your regular medications as directed. [x ] New medication prescriptions sent to your pharmacy: [ [facility]] [ ] New medication written as a paper prescription [ ] No new medications given *Please follow up with your primary care provider in 2-3 days, call for an appointment. Let them know you were seen in the Emergency Department and that we ask that you be seen in follow up. We will electronically transmit a record of today's note if your PCP is in our system *If you do not have a primary care provider please contact the [facility] Resource line at [phone]. They will ask some questions about your medical history and help get you set up with a doctor in the community. *Return to Emergency Department if you should have any new, worsening or concerning symptoms, such as [fever greater than 101 F, shaking chills, worsening pain, persistent vomiting or other bothersome symptoms] Prescriptions: New ketorolac 10 mg tablet 10 mg PO Q6H PRN (Reason: pain) Qty: 14 0RF lidocaine [Lidoderm] 5 % adhesive patch,medicated 1 patch TOP DAILY Qty: 15 0RF Rx Instructions: leave on most painful area for 12 hrs No Action LISINOPRIL (Zestril / Prinivil) 40 mg PO DAILY Qty: 0 FERROUS GLUCONATE (#FERATE) 27 mg PO Q DAY Qty: 0 omeprazole 20 MG capsule,delayed release(DR/EC) 20 mg PO QDAY Qty: 0 hydrochlorothiazide 25 MG tablet 25 mg PO QDAY Qty: 0 hydroxyzine pamoate [Vistaril] 25 MG capsule 25 mg PO Q6HP Qty: 0 BusPIRone Hydrochloride (BUSPAR DIVIDOSE~) 15 mg PO TID Qty: 0 potassium chloride [Klor-Con 8] 8 MEQ tablet extended release 10 meq PO DAILY Qty: 0 furosemide [Lasix] 20 MG tablet 20 mg PO DAILY Qty: 0 gabapentin [Neurontin] 300 MG capsule 300 mg PO TID Qty: 0 VITAMIN D (Vitamin D3) bottle 250 mg PO DAILY Qty: 0 methadone 5 MG tablet 140 mg PO DAILY Qty: 0 Referrals: Miscellaneous,Doctor, MD [Primary Care Provider] - Visit Report Forms: Patient Portal/API
[2022-05-03 15:19] LABS: Alanine Aminotransferase 18 IU/L (<35); Albumin 4.1 g/dL (3.5-5.0); Albumin Globulin Ratio 1.1 (1.0-2.8); Alkaline Phosphatase 109 U/L (38-126); Aspartate Aminotransferase 26 IU/L (14-36); BUN Creatinine Ratio 22.5 (6-22); Bilirubin Total 0.3 mg/dL (0.2-1.3); Blood Urea Nitrogen 16 mg/dL (7-17); Calcium 8.6 mg/dL (8.4-10.2); Carbon Dioxide 27 mmol/L (22-32); Chloride 110 mmol/L (98-107); Estimated Glomerular Filt Rate > 60 mL/min (>60); Globulin 3.6 g/dL (1.7-4.1); Glucose 87 mg/dL (70-100); HEMOLYSIS < 15 (0-50); Lipase 56 U/L (23-300); Potassium 3.4 mmol/L (3.4-5.1); Sodium 142 mmol/L (137-145); Total Protein 7.7 g/dL (6.3-8.2)
[2022-05-03 15:36] LABS: Add Manual Diff / Slide Review NO; Basophils Absolute Auto 0 /uL (0-100); Basophils Percent Auto 0.7 % (0-2); Eosinophils Absolute Auto 400 /uL (0-450); Eosinophils Percent Auto 5.3 % (2-4); Hematocrit 35.5 % (36-46); Hemoglobin 12.1 g/dL (12.0-16.0); Lymphocytes Absolute Auto 900 /uL (1100-4500); Lymphocytes Percent Auto 13.2 % (25-40); Mean Corpuscular HGB Conc 34.2 % (30-36); Mean Corpuscular Hemoglobin 28.4 PG (26-34); Monocytes Absolute Auto 500 /uL (0-900); Monocytes Percent Auto 6.8 % (3-14); Neutrophils Absolute Auto 5000 /uL (1500-7000); Platelet Count 282 X10^3/uL (150-400); Red Blood Cell Count 4.27 X10^6/uL (4.0-5.2); White Blood Cell Count 6.7 X10^3/uL (4.5-11.0)
[2022-05-03 16:47] LABS: RBC Urine 1-5/HPF (0-5/HPF); Squamous Epithelial Cell Urine 1-5 /HPF (0-5/HPF); Transitional Epi Cells Urine 1-5/HPF (0-5/HPF); White Blood Cell Casts Urine 1-5/LPF
[2022-05-03 16:48] LABS: Bacteria Urine Few (2-10); Culture Indicated Urine Specimen Cultured; Mucus Urine 1+ (Negative); WBC Urine 5-10/HPF (0-5/HPF)
[2022-05-03] MEDS: LIDOCAINE PATCH 1 EACH ADH..PATCH TOP (18:10)
[2022-05-03] MEDS: KETOROLAC 30 MG/ML VIAL 15 MG IV (18:10)
== END 2022-05-03 18:20 | disposition home or self-care (01) ==
PROVIDERS: Nurse Practitioner Critical Care Medicine; Emergency Provider Emergency Medicine
DX: R07.89 Other chest pain (principal)
CPT/HCPCS: 36415; 71100; 80053; 81003; 81015; 83690; 85025; 87086; 96374; 99284; J1885

== ENCOUNTER 2022-10-03 03:29 | Emergency (ER) | payer OTHER, SELFPAY ==
[2022-10-03 04:08] VITALS: BP 145/78; PULSE 110; RESP 20; TEMP 37.4; O2SAT 97
--- NOTE | 2022-10-03 04:10 | DI.RAD.S_ITS ---
PROCEDURE: XR CHEST 1V INDICATIONS: septic TECHNIQUE: One view of the chest was acquired. COMPARISON: [facility], CR, XR RIBS LT 2V, 05/03/2022, 13:43. [facility], CT, CT ANGIO CHEST PE, 12/12/2020, 20:18. [facility], CR, XR CHEST 1V, 07/27/2021, 2:46. [facility], CR, XR CHEST 2V, 05/09/2020, 16:28. FINDINGS: Surgical changes and devices: None. Lungs and pleura: Lungs are clear. No pleural effusions or pneumothorax. Mediastinum: Mediastinal contours appear normal. Heart size is normal. Bones and chest wall: Left 7th and 8th rib fractures, new in the interval compared to 05/03/2022. No suspicious bony lesions. Overlying soft tissues appear unremarkable. IMPRESSION: No acute cardiopulmonary abnormality. Left 7th and 8th rib fractures which are new in the interval compared to April 2022. Age indeterminate but felt unlikely to be acute. Recommend clinical correlation. Minor discrepancy with the overnight preliminary interpretation. Left rib fractures. Dictated by: Liam Richards M.D. on 10/03/2022 at 8:04 Approved by: Liam Richards M.D. on 10/03/2022 at 8:07
--- NOTE | 2022-10-03 04:18 | ED_ITS ---
HPI - General Adult General Chief complaint: Upper Respiratory Symptoms Stated complaint: feels very ill Time Seen by Provider: 10/03/22 03:37 Source: patient and family Mode of arrival: Wheelchair History of Present Illness HPI narrative: 57-year-old female daily smoker with history of hypertension prior opioid addiction presents with her in the chief complaint of multiple symptoms presenting over the course of the past few days including body aches, fatigue, sore throat and some dry cough. She denies any obvious exposure to COVID or flu. She denies headache or blurred vision. She is had some runny nose and sneeze. Her cough is dry and hacking and she denies the production of any sputum. She is had no nausea, vomiting or diarrhea. She denies dysuria, frequency or urgency. She is had no recent travel Related Data Home Medications Medication Instructions Recorded Confirmed LISINOPRIL (Zestril / Prinivil) 40 mg PO DAILY ##0 10/17/09 07/27/21 FERROUS GLUCONATE (#FERATE) 27 mg PO Q DAY ##0 07/25/11 07/27/21 hydrochlorothiazide 25 mg tablet 25 mg PO QDAY ##0 12/13/11 07/27/21 omeprazole 20 mg capsule,delayed 20 mg PO QDAY ##0 12/13/11 07/27/21 release BusPIRone Hydrochloride (BUSPAR 15 mg PO TID ##0 05/14/13 07/27/21 DIVIDOSE~) hydroxyzine pamoate 25 mg capsule 25 mg PO Q6HP ##0 05/14/13 07/27/21 (Vistaril) VITAMIN D (Vitamin D3) 250 mg PO DAILY ##0 04/11/17 07/27/21 furosemide 20 mg tablet (Lasix) 20 mg PO DAILY ##0 04/11/17 07/27/21 gabapentin 300 mg capsule 300 mg PO TID ##0 04/11/17 07/27/21 (Neurontin) potassium chloride 8 mEq 10 meq PO DAILY ##0 04/11/17 07/27/21 tablet,extended release (Klor-Con) methadone 5 mg tablet 140 mg PO DAILY ##0 04/14/17 07/27/21 Previous Rx's Medication Instructions Recorded ketorolac 10 mg tablet 10 mg PO Q6H PRN pain #14 tabs 05/03/22 lidocaine 5 % topical patch 1 patch topical DAILY #15 ea 05/03/22 (Lidoderm) buspirone 15 mg tablet 15 mg PO TID #90 tabs 10/03/22 furosemide 20 mg tablet (Lasix) 20 mg PO DAILY #30 tabs 10/03/22 omeprazole 20 mg capsule,delayed 20 mg PO DAILY #30 caps 10/03/22 release Allergies Allergy/AdvReac Type Severity Reaction Status Date / Time ibuprofen AdvReac Unknown Heartburn Verified 07/27/21 08:57 amitriptyline AdvReac Verified 07/27/21 02:21 Review of Systems Review of Systems Narrative: GENERAL: See HPI. HEENT: See HPI RESPIRATORY: See HPI CARDIOVASCULAR: Denies chest pain, palpitations, orthopnea, edema, GASTROINTESTINAL: Denies nausea, vomiting, abdominal pain, diarrhea, constipation, melena. : Denies dysuria, frequency, incontinence, hematuria, urinary retention. MUSCULOSKELETAL: denies weakness, joint pain, or bony pain SKIN: Denies rash, skin lesions, or other NEUROLOGIC: Denies weakness, headache, numbness, change in speech, confusion, seizures, incoordination. PSYCHIATRIC: No concerning psychosocial issues. 12 point review of systems is negative except for those stated above Patient History Medical History (Updated 10/03/22 @ 06:26 by Luiz Bautista DO) Acid reflux Opioid use disorder Social History household members: spouse Smoking Status: Current every day smoker Smoking Status: Current every day smoker tobacco type: cigarettes alcohol intake frequency: 0-2 drinks per day Substance Use Type: marijuana Exam Narrative Exam Narrative: GENERAL: [57] year old patient appears stated age. Well-developed patient, in mild distress. Appears to feel unwell, weak, require some assistance to get out of the wheelchair HEAD: Atraumatic. Normocephalic. EYES: Pupils equal round and reactive. Extraocular motions intact. No scleral icterus. No injection or drainage. ENT: Nose without bleeding, purulent drainage. Throat without erythema, tonsillar hypertrophy or exudate. Airway patent. NECK: Trachea midline. Non tender CARDIOVASCULAR: Regular rate and rhythm without murmurs, gallops, or rubs. RESPIRATORY: Clear to auscultation. Breath sounds equal bilaterally. No wheezes, rales, or rhonchi. GASTROINTESTINAL: Abdomen soft, non-tender, nondistended. EXTREMITIES: No edema or joint tenderness. BACK: Nontender without deformity or crepitance. No flank tenderness. NEURO: AOx3. SKIN: No rash or erythema of visible areas Initial Vital Signs Initial Vital Signs: Vital Signs Temperature 99.4 F 10/03/22 04:08 Pulse Rate 110 H 10/03/22 04:08 Respiratory Rate 20 10/03/22 04:08 Blood Pressure 145/78 H 10/03/22 04:08 Pulse Oximetry 97 10/03/22 04:08 Oxygen Delivery Method 10/03/22 04:08 Course Orders Ordered: Discontinued Medications Clonidine HCl (Clonidine Tts 0.1 Mg Patch) 0.1 mg TOP NOW ONE Stop: 10/03/22 05:16 Last Admin: 10/03/22 05:26 Dose: 0.1 mg Documented By: KOBE Sodium Chloride (Normal Saline 0.9%) 1,000 mls @ 1,000 mls/hr IV BOLUS ONE Stop: 10/03/22 05:08 Last Infusion: 10/03/22 06:26 Dose: 0 mls/hr Documented By: Admin: 10/03/22 04:27 Dose: 1,000 mls/hr Documented By: KOBE Acetaminophen (Ofirmev) 1,000 mg in 100 mls @ 400 mls/hr IV NOW ONE Stop: 10/03/22 05:20 Last Admin: 10/03/22 06:19 Dose: Not Given Documented By: KOBE Ketorolac Tromethamine (Ketorolac 30 Mg/Ml Vial) 15 mg IV NOW ONE Stop: 10/03/22 05:07 Last Admin: 10/03/22 05:14 Dose: 15 mg Documented By: KOBE Vital Signs Vital signs: Vital Signs - 8 hr 10/03/22 04:08 10/03/22 05:17 10/03/22 06:18 Temperature 99.4 F Pulse Rate 110 H 115 H 110 H Respiratory Rate 20 24 18 Blood Pressure 145/78 H 145/78 H Pulse Oximetry 97 98 91 Oxygen Delivery Method Room Air Room Air Medical Decision Making Lab Data Result diagrams: 10/03/22 04:19 10/03/22 04:19 Labs: Lab Results 10/03/22 10/03/22 10/03/22 Range/Units 04:19 04:19 04:19 WBC 5.2 (4.5-11.0) X10^3/uL RBC 4.67 (4.0-5.2) X10^6/uL Hgb 13.1 (12.0-16.0) g/dL Hct 38.3 (36-46) % MCV 82.0 (80-100) fL MCH 28.0 (26-34) PG MCHC 34.1 (30-36) % RDW 14.8 (11.6-14.8) % Plt Count 206 (150-400) X10^3/uL Neut % (Auto) 88.3 H (50-75) % Lymph % (Auto) 5.9 L (25-40) % [place] % (Auto) 5.0 (3-14) % Eos % (Auto) 0.1 L (2-4) % Baso % (Auto) 0.7 (0-2) % Neut # (Auto) 4600 (3876-5371) /uL Lymph # (Auto) 300 L (1075-5922) /uL [place] # (Auto) 300 (0-900) /uL Eos # (Auto) 0 (0-450) /uL Baso # (Auto) 0 (0-100) /uL Sodium 139 (137-145) mmol/L Potassium 3.5 (3.4-5.1) mmol/L Chloride 104 (98-107) mmol/L Carbon Dioxide 24 (22-32) mmol/L BUN 8 (7-17) mg/dL Creatinine 0.68 (0.52-1.04) mg/dL Estimated GFR > 60 (>60) mL/min BUN/Creatinine Ratio 11.8 (6-22) Glucose 113 H (70-100) mg/dL Lactate 1.1 (0.7-2.1) mmol/L Calcium 8.6 (8.4-10.2) mg/dL Magnesium 1.7 (1.6-2.3) mg/dL Total Bilirubin 0.3 (0.2-1.3) mg/dL AST 38 H (14-36) IU/L ALT 26 (<35) IU/L Alkaline Phosphatase 95 (38-126) U/L Total Creatine Kinase 98 (30-135) U/L CK-MB (CK-2) TNP CK-MB (CK-2) Rel Index TNP Troponin I 0.041 H (0.01-0.034) ng/mL NT-Pro-B Natriuret Pep 1930 H (<125) pg/mL Total Protein 7.9 (6.3-8.2) g/dL Albumin 4.0 (3.5-5.0) g/dL Globulin 3.9 (1.7-4.1) g/dL Albumin/Globulin Ratio 1.0 (1.0-2.8) Lipase 59 (23-300) U/L SARS-CoV-2 (PCR) (Negative) Influenza A (RT-PCR) (NEGATIVE) Influenza B (RT-PCR) (NEGATIVE) RSV (PCR) (Negative) 10/03/22 Range/Units 04:22 WBC (4.5-11.0) X10^3/uL RBC (4.0-5.2) X10^6/uL Hgb (12.0-16.0) g/dL Hct (36-46) % MCV (80-100) fL MCH (26-34) PG MCHC (30-36) % RDW (11.6-14.8) % Plt Count (150-400) X10^3/uL Neut % (Auto) (50-75) % Lymph % (Auto) (25-40) % [place] % (Auto) (3-14) % Eos % (Auto) (2-4) % Baso % (Auto) (0-2) % Neut # (Auto) (5987-7830) /uL Lymph # (Auto) (5680-1974) /uL [place] # (Auto) (0-900) /uL Eos # (Auto) (0-450) /uL Baso # (Auto) (0-100) /uL Sodium (137-145) mmol/L Potassium (3.4-5.1) mmol/L Chloride (98-107) mmol/L Carbon Dioxide (22-32) mmol/L BUN (7-17) mg/dL Creatinine (0.52-1.04) mg/dL Estimated GFR (>60) mL/min BUN/Creatinine Ratio (6-22) Glucose (70-100) mg/dL Lactate (0.7-2.1) mmol/L Calcium (8.4-10.2) mg/dL Magnesium (1.6-2.3) mg/dL Total Bilirubin (0.2-1.3) mg/dL AST (14-36) IU/L ALT (<35) IU/L Alkaline Phosphatase (38-126) U/L Total Creatine Kinase (30-135) U/L CK-MB (CK-2) CK-MB (CK-2) Rel Index Troponin I (0.01-0.034) ng/mL NT-Pro-B Natriuret Pep (<125) pg/mL Total Protein (6.3-8.2) g/dL Albumin (3.5-5.0) g/dL Globulin (1.7-4.1) g/dL Albumin/Globulin Ratio (1.0-2.8) Lipase (23-300) U/L SARS-CoV-2 (PCR) Negative (Negative) Influenza A (RT-PCR) Flu a positive H (NEGATIVE) Influenza B (RT-PCR) Flu b negative (NEGATIVE) RSV (PCR) Negative (Negative) MDM Narrative Medical decision making narrative: Over the course of the visit patient begins to get a bit restless and agitated. After extensive questioning she admits that she has been using Percocet 30s and took her last 1 at about 10:00 p.m.. She is alert and speaking clearly. Her workup is largely reassuring and there is no evidence of significant respiratory distress, patient is not tachypneic or hypoxemic. Discharge Plan Departure Patient Disposition: Home Clinical Impression: Influenza A, Acute opioid withdrawal Instructions: DI for Influenza -- Adult Activity Restrictions/Additional Instructions: *You have been diagnosed with [influenza, opioid withdrawal ] *What to do: *Please continue to take your regular medications as directed. [ x] New medication prescriptions sent to your pharmacy: [[facility] ] [ ] New medication written as a paper prescription [ ] No new medications given *Please follow up with your primary care provider in 2-3 days, call for an appointment. Let them know you were seen in the Emergency Department and that we ask that you be seen in follow up. We will electronically transmit a record of today's note if your PCP is in our system *If you do not have a primary care provider please contact the [facility] Resource line at [phone]. They will ask some questions about your medical history and help get you set up with a doctor in the community. *Return to Emergency Department if you should have any new, worsening or concerning symptoms, such as [fever greater than 101 F, shaking chills, worsening pain, persistent vomiting or other bothersome symptoms] Prescriptions: New furosemide [Lasix] 20 mg tablet 20 mg PO DAILY Qty: 30 0RF omeprazole 20 mg capsule,delayed release(DR/EC) 20 mg PO DAILY Qty: 30 0RF buspirone 15 mg tablet 15 mg PO TID Qty: 90 0RF No Action LISINOPRIL (Zestril / Prinivil) 40 mg PO DAILY Qty: 0 FERROUS GLUCONATE (#FERATE) 27 mg PO Q DAY Qty: 0 omeprazole 20 MG capsule,delayed release(DR/EC) 20 mg PO QDAY Qty: 0 hydrochlorothiazide 25 MG tablet 25 mg PO QDAY Qty: 0 hydroxyzine pamoate [Vistaril] 25 MG capsule 25 mg PO Q6HP Qty: 0 BusPIRone Hydrochloride (BUSPAR DIVIDOSE~) 15 mg PO TID Qty: 0 potassium chloride [Klor-Con 8] 8 MEQ tablet extended release 10 meq PO DAILY Qty: 0 furosemide [Lasix] 20 MG tablet 20 mg PO DAILY Qty: 0 gabapentin [Neurontin] 300 MG capsule 300 mg PO TID Qty: 0 VITAMIN D (Vitamin D3) bottle 250 mg PO DAILY Qty: 0 methadone 5 MG tablet 140 mg PO DAILY Qty: 0 ketorolac 10 mg tablet 10 mg PO Q6H PRN (Reason: pain) Qty: 14 0RF lidocaine [Lidoderm] 5 % adhesive patch,medicated 1 patch TOP DAILY Qty: 15 0RF Rx Instructions: leave on most painful area for 12 hrs Referrals: Miscellaneous,Doctor, MD [Primary Care Provider] - Visit Report Forms: Patient Portal/API
[2022-10-03] MEDS: SODIUM CHLORIDE 0.9% 1,000 ML 1000 ML IV (04:27)
[2022-10-03 04:33] LABS: Add Manual Diff / Slide Review NO; Basophils Absolute Auto 0 /uL (0-100); Basophils Percent Auto 0.7 % (0-2); Eosinophils Absolute Auto 0 /uL (0-450); Eosinophils Percent Auto 0.1 % (2-4); Hematocrit 38.3 % (36-46); Hemoglobin 13.1 g/dL (12.0-16.0); Lymphocytes Absolute Auto 300 /uL (1100-4500); Lymphocytes Percent Auto 5.9 % (25-40); Mean Corpuscular HGB Conc 34.1 % (30-36); Monocytes Absolute Auto 300 /uL (0-900); Neutrophils Absolute Auto 4600 /uL (1500-7000); Neutrophils Percent Auto 88.3 % (50-75); Platelet Count 206 X10^3/uL (150-400); Red Blood Cell Count 4.67 X10^6/uL (4.0-5.2); Red Cell Distribution Width 14.8 % (11.6-14.8); White Blood Cell Count 5.2 X10^3/uL (4.5-11.0)
[2022-10-03 04:40] LABS: Alanine Aminotransferase 26 IU/L (<35); Alkaline Phosphatase 95 U/L (38-126); Aspartate Aminotransferase 38 IU/L (14-36); BUN Creatinine Ratio 11.8 (6-22); Bilirubin Total 0.3 mg/dL (0.2-1.3); Blood Urea Nitrogen 8 mg/dL (7-17); Calcium 8.6 mg/dL (8.4-10.2); Carbon Dioxide 24 mmol/L (22-32); Chloride 104 mmol/L (98-107); Creatine Kinase 98 U/L (30-135); Estimated Glomerular Filt Rate > 60 mL/min (>60); Globulin 3.9 g/dL (1.7-4.1); Glucose 113 mg/dL (70-100); HEMOLYSIS < 15 (0-50); Lactate (Lactic Acid) 1.1 mmol/L (0.7-2.1); Lipase 59 U/L (23-300); Magnesium 1.7 mg/dL (1.6-2.3); Potassium 3.5 mmol/L (3.4-5.1); Sodium 139 mmol/L (137-145); Total Protein 7.9 g/dL (6.3-8.2)
[2022-10-03 04:51] LABS: NT-proBNP (BNP-Adult 18+) 1930 pg/mL (<125); Troponin I 0.041 ng/mL (0.01-0.034)
[2022-10-03 05:05] LABS: Influenza A - CEPHEID Flu A POSITIVE (NEGATIVE); Influenza B - CEPHEID Flu B NEGATIVE (NEGATIVE); Respiratory Syncytial Virus Negative (Negative)
[2022-10-03 05:08] LABS: COVID-19 CEPHEID 4-PLEX PCR Negative (Negative)
[2022-10-03] MEDS: KETOROLAC 30 MG/ML VIAL 15 MG IV (05:14)
--- NOTE | 2022-10-03 05:16 | PC.NURSE ---
Patient becoming increasingly more agitated, rolling around on gurney and moaning loudly. Patient coached on breathing and lights dimmed for comfort however patient continues to become more agitated before stating she is withdrawing from 30's. Dr. Bautista arrives at bedside for reassessment
[2022-10-03 05:17] VITALS: BP 145/78; PULSE 115; RESP 24; O2SAT 98
[2022-10-03] MEDS: cloNIDine TTS 0.1 MG PATCH TOP (05:26)
--- NOTE | 2022-10-03 06:16 | PC.NURSE ---
Patient continues to roll around in bed, agitated. Patient removes second peripheral IV line. Catheter tip intact. Patient assisted into position of comfort. Lights dimmed. Patient not tolerating continuous telemetry or BP cuff. Continuous O2 probe remains on finger.
[2022-10-03 06:18] VITALS: PULSE 110; RESP 18; O2SAT 91
[2022-10-03 06:57] VITALS: BP 154/74; PULSE 110; RESP 16; O2SAT 98
== END 2022-10-03 07:24 | disposition home or self-care (01) ==
PROVIDERS: Emergency Provider Emergency Medicine
DX: J10.1 Influenza due to other identified influenza virus with other respiratory manifestations (principal); F11.93 Opioid use, unspecified with withdrawal; Z20.822 Contact with and (suspected) exposure to COVID-19
CPT/HCPCS: 0241U; 36415; 71045; 80053; 82550; 83605; 83690; 83735; 83880; 84484; 85025; 87040; 93005; 96361; 96374; 99284; J1885

== ENCOUNTER → 2023-07-15 17:38 | Outpatient (CLI) | payer OTHER, SELFPAY ==
--- NOTE | 2023-07-15 | DI.RAD.S_ITS ---
PROCEDURE: XR ANKLE LT MIN 3V INDICATIONS: pain in lt knee TECHNIQUE: 3 views of the ankle were acquired. COMPARISON: [facility], CR, XR ANKLE LT MIN 3V, 05/07/2020, 15:59. FINDINGS: Bones: No fractures or dislocations. Ankle mortise is normally aligned. No suspicious bony lesions. Diffuse midfoot joint space narrowing with dorsal osteophytosis. Chronic osseous density again seen along the dorsal aspect of the anterior process of the talus unchanged from prior examination likely remote injury. Soft tissues: No tibiotalar joint effusion. Achilles tendon appears normal. IMPRESSION: 1. No acute fracture or dislocation. 2. Midfoot joint degeneration and chronic appearing osseous density along the dorsal aspect of the anterior process of the talus likely related to remote injury. Dictated by: Jules Alcantar [facility] Interpreted: Hyacinth Falk MD on 07/15/2023 at 20:40 Transcribed by: KJ on 07/16/2023 at 8:21 Approved by: Hyacnith Falk M.D. on 07/16/2023 at 10:23
--- NOTE | 2023-07-15 | DI.RAD.S_ITS ---
PROCEDURE: XR KNEE LT 3V INDICATIONS: pain in lt knee TECHNIQUE: 3 views of the knee were acquired. COMPARISON: [facility], CR, XR KNEE LT 1TO2V, 04/21/2019, 12:31. [facility], CR, KNEE 3V LEFT, 07/25/2011, 12:09. FINDINGS: Bones: No fractures or dislocations. No suspicious bony lesions. Severe narrowing of the lateral femoral tibial joint and tricompartmental periarticular osteophyte formation. Soft tissues: Large joint effusion. No suspicious soft tissue calcifications. IMPRESSION: 1. Large knee joint effusion and tricompartmental knee joint degeneration, severe involving the lateral femorotibial joint. If internal derangement is suspected, consider MRI. Dictated by: Jules CURRY Interpreted: Hyacinth Falk MD on 07/15/2023 at 20:38 Transcribed by: KJ on 07/16/2023 at 8:20 Approved by: Hyacinth Falk M.D. on 07/16/2023 at 10:23
--- NOTE | 2023-07-15 | DI.RAD.S_ITS ---
PROCEDURE: XR FOOT LT MIN 3V INDICATIONS: pain in lt knee TECHNIQUE: 3 views of the foot were acquired. COMPARISON: [facility], CR, XR FOOT LT MIN 3V, 08/03/2018, 11:45. FINDINGS: Bones: No fractures or dislocations. No suspicious bony lesions. Mild hallux valgus metatarsus prima varus alignment and medial bunion. Moderate 1st MTP and mild diffuse interphalangeal joint space narrowing with periarticular osteophyte formation. Chronic osseous density again seen along the dorsal aspect of the anterior process of the talus unchanged. Soft tissues: No tibiotalar joint effusion. Achilles tendon appears normal. IMPRESSION: 1. Moderate hallux valgus alignment and medial bunion. 2. Moderate 1st MTP and diffuse interphalangeal joint degeneration. 3. Chronic appearing osseous density along the dorsal aspect of the anterior process of the talus unchanged likely related to remote injury. Dictated by: Jules CURRY Interpreted: Hyacinth Falk MD on 07/15/2023 at 20:42 Transcribed by: KJ on 07/16/2023 at 8:21 Approved by: Hyacinth Falk M.D. on 07/16/2023 at 10:24
== END ==
PROVIDERS: PCP Family Medicine; Referring Provider Family Medicine; Visit Provider Family Medicine
DX: M17.12 Unilateral primary osteoarthritis, left knee (principal); M25.562 Pain in left knee; M25.462 Effusion, left knee; M20.12 Hallux valgus (acquired), left foot; M21.612 Bunion of left foot; M19.072 Primary osteoarthritis, left ankle and foot
CPT/HCPCS: 73562; 73610; 73630